=== PATIENT | female | born 1945 | race Caucasian/White ===

== ENCOUNTER 2016-08-14 14:13 | Outpatient (CLI) | payer BC, MEDICARE ==
[2016-08-14 15:09] LABS: Anion Gap 15 mmol/L (10-20); BUN (Urea Nitrogen) 20 mg/dL (9.8-20.1); Calc. Creatinine Clearance 0 mL/min (70-130); Calcium 9.6 mg/dL (7.8-10.44); Carbon Dioxide 23 mmol/L (23-31); Chloride 100 mmol/L (98-107); Estimated GFR-MDRD 40; Glucose 125 mg/dL (80-115); Potassium 3.8 mmol/L (3.5-5.1); Sodium 134 mmol/L (136-145)
[2016-08-14 16:29] LABS: Bilirubin Negative (Negative); Blood, Urine Moderate (Negative); Glucose, Urine (Dipstick) Negative (Negative); Leukocyte Large (Negative); Nitrite Negative (Negative); Protein, Urine (Dipstick) 100 mg/dL (Neg-Trace); Specific Gravity, Urine 1.015 (1.005-1.030); Urobilinogen 0.2 mg/dL (0.2-1.0); pH, Urine 5.5 (5.0-9.0)
[2016-08-14 16:43] LABS: Bacteria/HPF 3+ HPF (None Seen); Clarity Cloudy (Clear); Squamous Epithelial 0-3 HPF (0-3)
[2016-08-14 16:46] LABS: #Basophils 0.1 thou/uL (0.0-0.2); #Eosinphils 0.1 thou/uL (0.0-0.7); #Lymphocytes 1.1 thou/uL (1.20-3.40); #Monocytes 1.2 thou/uL (0.11-0.59); #Neutrophils 15.5 thou/uL (1.40-6.50); %Basophils 0.5 % (0.0-1.0); %Eosinophils 0.3 % (0.0-10.0); %Lymphocytes 6.2 % (21.0-51.0); %Monocytes 6.5 % (0.0-10.0); %Neutrophils 86.5 % (42.0-75.0); Hemoglobin 11.3 g/dL (12.0-16.0); Mean Corpuscular HGB CONC 33.6 g/dL (32.0-36.0); Mean Corpuscular Hemoglobin 31.5 pg (27.0-31.0); Mean Corpuscular Volume 93.7 fl (81.0-99.0); Mean Platelet Volume 7.3 fL (7.4-10.4); Platelet Count 271 thou/uL (130-400); RBC Distribution Width 12.3 % (11.5-14.5); White Blood Cell (WBC) Count 17.9 thou/uL (4.8-10.8)
== END 2016-08-14 14:14 | disposition home or self-care (01) ==
LOC: NAVSJIPCSP 14:13
PROVIDERS: ATTEND Internal Medicine
DX: N30.00 Acute cystitis without hematuria (principal); Z79.899 Other long term (current) drug therapy
CPT/HCPCS: 80048; 81003; 81015; 85025; 87077; 87086; 87186

== ENCOUNTER 2016-08-21 10:23 | Outpatient (CLI) | payer MEDICARE, OTHER | END 2016-08-21 10:24 | LOC: NAVSJIPCSP 10:23 | PROVIDERS: ATTEND Internal Medicine | DX: N30.00 Acute cystitis without hematuria (principal) | CPT/HCPCS: 87086 ==

== ENCOUNTER 2016-11-19 11:10 | Outpatient (CLI) | payer MEDICARE, OTHER ==
[2016-11-19 12:29] LABS: #Basophils 0.1 thou/uL (0.0-0.2); #Eosinphils 0.2 thou/uL (0.0-0.7); #Lymphocytes 1.2 thou/uL (1.20-3.40); #Monocytes 0.3 thou/uL (0.11-0.59); #Neutrophils 4.6 thou/uL (1.40-6.50); %Basophils 1.6 % (0.0-1.0); %Eosinophils 3.2 % (0.0-10.0); %Lymphocytes 18.4 % (21.0-51.0); %Monocytes 3.9 % (0.0-10.0); Mean Corpuscular HGB CONC 32.4 g/dL (32.0-36.0); Mean Corpuscular Hemoglobin 30.9 pg (27.0-31.0); Mean Corpuscular Volume 95.3 fl (81.0-99.0); Mean Platelet Volume 7.9 fL (7.4-10.4); Platelet Count 328 thou/uL (130-400); RBC Distribution Width 14.6 % (11.5-14.5); Red Blood Cell (RBC) Count 3.88 mill/uL (4.20-5.40); White Blood Cell (WBC) Count 6.3 thou/uL (4.8-10.8)
[2016-11-19 13:03] LABS: ALT (SGPT) 52 U/L (8-55); AST (SGOT) 42 U/L (5-34); Albumin 4.2 g/dL (3.4-4.8); Alkaline Phosphatase 69 U/L (40-150); Anion Gap 15 mmol/L (10-20); BUN (Urea Nitrogen) 16 mg/dL (9.8-20.1); Bilirubin, Total 0.6 mg/dL (0.2-1.2); Calc. Creatinine Clearance 0 mL/min (70-130); Calcium 10.2 mg/dL (7.8-10.44); Carbon Dioxide 22 mmol/L (23-31); Cardiac Risk 2.8 (Less than 4.5); Chloride 108 mmol/L (98-107); Cholesterol 171 mg/dl (< 200 Desired); Estimated GFR-MDRD 53; Globulin 2.5 g/dL (2.4-3.5); Glucose 81 mg/dL (80-115); HDL Cholesterol 61 mg/dL (>60 Neg Risk); LDL Cholesterol, Calculated 96 mg/dL; Potassium 4.6 mmol/L (3.5-5.1); Protein, Total 6.7 g/dL (6.0-8.3); Sodium 140 mmol/L (136-145); Triglycerides 68 mg/dL (Less than 150)
[2016-11-19 13:28] LABS: Bilirubin Negative (Negative); Blood, Urine Negative (Negative); Clarity Clear (Clear); Glucose, Urine (Dipstick) Negative (Negative); Leukocyte Small (Negative); Nitrite Negative (Negative); Protein, Urine (Dipstick) Negative (Neg-Trace); Urobilinogen 0.2 mg/dL (0.2-1.0)
[2016-11-19 14:15] LABS: Squamous Epithelial 0-3 HPF (0-3); WBC/HPF 0-3 HPF (0-3)
[2016-11-19 17:44] LABS: Iron 77 ug/dL (50-170); Iron Binding Capacity, Total 275 mcg/dL (265-497)
== END 2016-11-19 11:11 | disposition home or self-care (01) ==
LOC: NAVSJIPCSP 11:10
PROVIDERS: ATTEND Internal Medicine
DX: E03.9 Hypothyroidism, unspecified (principal); M06.9 Rheumatoid arthritis, unspecified; K90.0 Celiac disease
CPT/HCPCS: 36415; 80053; 80061; 81003; 81015; 82306; 83540; 83550; 84443; 85025

== ENCOUNTER 2017-01-13 13:23 | Outpatient (CLI) | payer MEDICARE, OTHER ==
[2017-01-13 16:25] LABS: #Eosinphils 0.2 thou/uL (0.0-0.7); #Lymphocytes 1.2 thou/uL (1.20-3.40); #Monocytes 0.2 thou/uL (0.11-0.59); #Neutrophils 2.7 thou/uL (1.40-6.50); %Basophils 0.9 % (0.0-1.0); %Eosinophils 4.8 % (0.0-10.0); %Lymphocytes 26.9 % (21.0-51.0); %Monocytes 4.5 % (0.0-10.0); Hemoglobin 11.9 g/dL (12.0-16.0); Mean Corpuscular HGB CONC 31.8 g/dL (32.0-36.0); Mean Corpuscular Hemoglobin 30.2 pg (27.0-31.0); Mean Platelet Volume 7.6 fL (7.4-10.4); Platelet Count 252 thou/uL (130-400); RBC Distribution Width 13.9 % (11.5-14.5); Red Blood Cell (RBC) Count 3.94 mill/uL (4.20-5.40); White Blood Cell (WBC) Count 4.3 thou/uL (4.8-10.8)
[2017-01-13 16:42] LABS: ALT (SGPT) 46 U/L (8-55); AST (SGOT) 32 U/L (5-34); Albumin 3.8 g/dL (3.4-4.8); Alkaline Phosphatase 62 U/L (40-150); Anion Gap 15 mmol/L (10-20); BUN (Urea Nitrogen) 15 mg/dL (9.8-20.1); Bilirubin, Total 0.3 mg/dL (0.2-1.2); CRP (Inflammatory) Less than 0.50 mg/dL (= or < 0.5); Calc. Creatinine Clearance 0 mL/min (70-130); Calcium 9.9 mg/dL (7.8-10.44); Carbon Dioxide 21 mmol/L (23-31); Chloride 107 mmol/L (98-107); Estimated GFR-MDRD 53; Globulin 2.3 g/dL (2.4-3.5); Glucose 98 mg/dL (80-115); Potassium 4.4 mmol/L (3.5-5.1); Protein, Total 6.1 g/dL (6.0-8.3); Sodium 139 mmol/L (136-145)
== END 2017-01-13 13:24 | disposition home or self-care (01) ==
LOC: NAVSJIPCSP 13:23
PROVIDERS: ATTEND Internal Medicine Rheumatology
DX: M06.09 Rheumatoid arthritis without rheumatoid factor, multiple sites (principal)
CPT/HCPCS: 36415; 80053; 85025; 85652; 86140

== ENCOUNTER 2017-03-10 08:29 | Outpatient (CLI) | payer MEDICARE, OTHER ==
--- NOTE | 2017-03-10 09:29 | RAD ---
BILATERAL KNEES UPRIGHT AP AND LATERAL VIEWS: History: 71-year-old female with left knee pain. FINDINGS: Right knee: Total knee arthroplasty changes are noted on the right side. IMPRESSION: Status post right knee arthroplasty changes. No dislocation or periprosthetic fracture. Left knee: Left knee arthroplasty changes. No periprosthetic fracture or dislocation or other acute process. POS: [facility]
== END 2017-03-10 08:30 | disposition home or self-care (01) ==
LOC: NAV RAD 08:29
PROVIDERS: ATTEND Internal Medicine Rheumatology
DX: M25.562 Pain in left knee (principal)
CPT/HCPCS: 73565

== ENCOUNTER 2021-05-07 11:52 | Emergency (ER) | payer MEDICARE, OTHER ==
[2021-05-07 12:56] LABS: #Lymphocytes 0.3 thou/uL (1.20-3.40); #Monocytes 0.6 thou/uL (0.11-0.59); #Neutrophils 5.8 thou/uL (1.40-6.50); %Basophils 0.7 % (0.0-1.0); %Lymphocytes 3.9 % (21.0-51.0); %Monocytes 8.7 % (0.0-10.0); %Neutrophils 86.7 % (42.0-75.0); Hemoglobin 13.5 g/dL (12.0-16.0); Mean Corpuscular HGB CONC 33.9 g/dL (32.0-36.0); Mean Corpuscular Hemoglobin 31.3 pg (27.0-31.0); Mean Corpuscular Volume 92.5 fL (78.0-98.0); Platelet Count 269 thou/uL (130-400); RBC Distribution Width 12.4 % (11.5-14.5); White Blood Cell (WBC) Count 6.7 thou/uL (4.8-10.8)
[2021-05-07 13:00] LABS: ALT (SGPT) 15 U/L (8-55); AST (SGOT) 22 U/L (5-34); Albumin 3.8 g/dL (3.4-4.8); Alkaline Phosphatase 47 U/L (40-110); Anion Gap 17 mmol/L (10-20); BUN (Urea Nitrogen) 11 mg/dL (9.8-20.1); Bilirubin, Total 0.6 mg/dL (0.2-1.2); CK (CPK) 384 U/L (29-168); Calc. Creatinine Clearance 0 mL/min (70-130); Calcium 8.8 mg/dL (7.8-10.44); Carbon Dioxide 19 mmol/L (23-31); Chloride 102 mmol/L (98-107); Glucose 123 mg/dL (83-110); Protein, Total 6.8 g/dL (5.8-8.1); Sodium 134 mmol/L (136-145)
[2021-05-07] MEDS ORDERED: Sodium Chloride 0.9% 1,000 ML ONE ×2 (13:20→15:15)
[2021-05-07] MEDS ORDERED: Boostrix 0.5 ML (Tdap) VIAL ONE (13:40)
[2021-05-07 15:28] LABS: Bilirubin Negative (Negative); Blood, Urine Small (Negative); Glucose, Urine (Dipstick) Negative (Negative); Ketone, Urine 15 mg/dL (Negative); Leukocyte Large (Negative); Nitrite Positive (Negative); Protein, Urine (Dipstick) 100 mg/dL (Neg-Trace); Specific Gravity, Urine 1.015 (1.005-1.030); pH, Urine 6.5 (5.0-9.0)
[2021-05-07 15:29] LABS: Clarity SL HAZY (Clear)
[2021-05-07 15:37] LABS: RBC/HPF 0-3 HPF (0-3)
[2021-05-07 15:38] LABS: Bacteria/HPF 4+ HPF (None Seen); Squamous Epithelial 0-3 HPF (0-3); WBC/HPF Greater Than 50 HPF (0-3)
[2021-05-07] MEDS ORDERED: Bacitracin 1 PK ONE (16:12)
== END 2021-05-07 18:04 | disposition short-term general hospital (02) ==
LOC: NAV ERS 11:52
DX: U07.1 COVID-19 (principal); S02.113A Unspecified occipital condyle fracture, initial encounter for closed fracture; S02.2XXA Fracture of nasal bones, initial encounter for closed fracture; M62.82 Rhabdomyolysis; W19.XXXA Unspecified fall, initial encounter; E78.5 Hyperlipidemia, unspecified; I10 Essential (primary) hypertension; M19.90 Unspecified osteoarthritis, unspecified site; Z86.73 Personal history of transient ischemic attack (TIA), and cerebral infarction without residual deficits; Z87.891 Personal history of nicotine dependence; Z79.82 Long term (current) use of aspirin
CPT/HCPCS: 70450; 70486; 72125; 80053; 81003; 81015; 82550; 83880; 84484; 85025; 90471; 90715; 93005; 94760; J7050

== ENCOUNTER 2021-06-19 11:34 | Outpatient (CLI) | payer MEDICARE, OTHER | END 2021-06-19 11:35 | disposition home or self-care (01) | LOC: NAV RAD 11:34 | PROVIDERS: ATTEND Surgery | DX: S02.119 Unspecified fracture of occiput (principal) | CPT/HCPCS: 72040 ==

== ENCOUNTER 2021-06-24 15:03 | Outpatient (CLI) | payer MEDICARE, OTHER | END 2021-06-24 15:04 | disposition home or self-care (01) | LOC: NAV CT 15:03 | PROVIDERS: ATTEND Family Medicine | DX: S02.119 Unspecified fracture of occiput (principal) | CPT/HCPCS: 72125 ==

== ENCOUNTER 2021-07-30 10:51 | Outpatient (CLI) | payer MEDICARE, OTHER | END 2021-07-30 10:52 | disposition home or self-care (01) | LOC: NAV CT 10:51 | PROVIDERS: ATTEND Surgery | DX: S02.113D Unspecified occipital condyle fracture, subsequent encounter for fracture with routine healing (principal); M47.812 Spondylosis without myelopathy or radiculopathy, cervical region | CPT/HCPCS: 72125 ==

== ENCOUNTER 2022-04-01 12:23 | Emergency (ER) | payer MEDICARE, OTHER ==
[2022-04-01 13:01] LABS: Base Excess-Venous -1.3 mmol/L (-2.0 to 3.0); Bicarbonate (HCO3v) 21.9 mmol/L (22.0-28.0); CO2 Tension (PvCO2) 32.4 mmHg (42.0-51.0); Calcium, Ionized 0.99 mmol/L (1.15-1.33); Chloride 101 mmol/L (98-107); Hemoglobin - Calc 17.1 g/dL (12.0-16.0); Potassium 3.3 mmol/L (3.5-5.1); Sodium 140 mmol/L (138-145); T. Carbon Dioxide 22.9 mmol/L (22.0-28.0); vO2 Saturation-calc 86.3 % (60.0-85.0)
[2022-04-01 13:04] LABS: #Basophils 0.1 thou/uL (0.0-0.2); #Lymphocytes 0.5 thou/uL (1.20-3.40); #Monocytes 0.7 thou/uL (0.11-0.59); #Neutrophils 6.2 thou/uL (1.40-6.50); %Basophils 1.3 % (0.0-1.0); %Eosinophils 0.2 % (0.0-10.0); %Lymphocytes 6.1 % (21.0-51.0); %Neutrophils 83.5 % (42.0-75.0); Hemoglobin 16.7 g/dL (12.0-16.0); Mean Corpuscular HGB CONC 31.9 g/dL (32.0-36.0); Mean Corpuscular Hemoglobin 30.1 pg (27.0-31.0); Mean Corpuscular Volume 94.5 fl (78.0-98.0); Mean Platelet Volume 7.1 fL (7.4-10.4); Platelet Count 513 10x3/uL (130-400); RBC Distribution Width 14.5 % (11.5-14.5); Red Blood Cell (RBC) Count 5.55 mill/uL (4.20-5.40); White Blood Cell (WBC) Count 7.5 10x3/uL (4.8-10.8)
[2022-04-01] MEDS ORDERED: Sodium Chloride 0.9% 1,000 ML ONE (13:07)
[2022-04-01 13:08] LABS: ALT (SGPT) 22 U/L (8-55); AST (SGOT) 20 U/L (5-34); Albumin 4.8 g/dL (3.4-4.8); Alkaline Phosphatase 68 U/L (40-110); Anion Gap 25 mmol/L (10-20); BUN (Urea Nitrogen) 32 mg/dL (9.8-20.1); Calc. Creatinine Clearance 0 mL/min (70-130); Calcium 10.1 mg/dL (7.8-10.44); Carbon Dioxide 22 mmol/L (23-31); Chloride 97 mmol/L (98-107); Estimated GFR 21; Glucose 219 mg/dL (83-110); Potassium 3.5 mmol/L (3.5-5.1); Protein, Total 7.8 g/dL (5.8-8.1); Sodium 140 mmol/L (136-145)
[2022-04-01 13:20] LABS: Bilirubin Small (Negative); Blood, Urine Trace (Negative); Clarity Slightly Cloudy (Clear); Glucose, Urine (Dipstick) Negative (Negative); Ketone, Urine Trace mg/dL (Negative); Leukocyte Trace (Negative); Nitrite Negative (Negative); Protein, Urine (Dipstick) > or equal to 300 mg/dL (Neg-Trace); Urobilinogen 0.2 mg/dL (Less than 2); pH, Urine 5.5 (5.0-9.0)
[2022-04-01 13:34] LABS: Specific Gravity, Urine 1.025 (1.002-1.036)
[2022-04-01 13:36] LABS: Bacteria/HPF 3+ HPF (None Seen); RBC/HPF 0-3 HPF (0-3); Squamous Epithelial 0-3 HPF (0-3); WBC/HPF 0-3 HPF (0-3)
[2022-04-01] MEDS ORDERED: Aspirin Chewable 81 MG TAB ONE (13:36)
[2022-04-01 13:54] LABS: CKMB 3.7 ng/mL (0-6.6)
[2022-04-01] MEDS ORDERED: cefTRIAXone\\ROCEPHIN 2 GM VIAL ONE (13:58)
[2022-04-01] MEDS ORDERED: Sodium Chloride 0.9% 500 ML ONE (13:58)
[2022-04-01] MEDS ORDERED: Sodium Chloride 0.9% 100 ML ONE (13:58)
[2022-04-01 14:06] LABS: SARS-CoV-2 NAA Rapid Test Not Detected (NotDetected)
[2022-04-01] MEDS ORDERED: Ondansetron PF 4 MG/2 ML Vial ONE (15:45)
[2022-04-01 16:08] LABS: Lactic Acid 2.8 mmol/L (0.5-2.2)
[2022-04-01 16:33] LABS: Troponin I 0.447 ng/mL (< 0.028)
== END 2022-04-01 16:30 | disposition short-term general hospital (02) ==
LOC: NAV ERS 12:23
DX: K56.609 Unspecified intestinal obstruction, unspecified as to partial versus complete obstruction (principal); A41.9 Sepsis, unspecified organism; I21.4 Non-ST elevation (NSTEMI) myocardial infarction; E03.9 Hypothyroidism, unspecified; I10 Essential (primary) hypertension; E78.5 Hyperlipidemia, unspecified; Z79.82 Long term (current) use of aspirin; Z79.899 Other long term (current) drug therapy; Z87.891 Personal history of nicotine dependence; Z20.822 Contact with and (suspected) exposure to COVID-19
CPT/HCPCS: 36415; 71045; 74176; 80053; 81003; 81015; 82330; 82435; 82553; 82803; 83605; 84132; 84295; 84484; 85025; 87040; 87077; 87086; 87186; 93005; 96361; 96365; 96366; 96367; 96375; J0696; J2405; J3370; J3490; J7030; J7050

== ENCOUNTER 2022-04-05 13:46 | Inpatient (IN) | payer MEDICARE, OTHER ==
[2022-04-05] MEDS ORDERED: Calcium Carbonate 500 MG ChewTAB PO PRN (16:59)
[2022-04-05] MEDS ORDERED: Acetaminophen 325 MG TAB PO PRN (16:59)
[2022-04-05] MEDS ORDERED: Bisacodyl 5 MG TAB PO PRN (17:09)
[2022-04-05] MEDS ORDERED: Bisacodyl 10 MG SUPP PR PRN (17:09)
[2022-04-05] MEDS ORDERED: Senokot S 8.6-50 MG TAB PO PRN (17:09)
[2022-04-05] MEDS ORDERED: Ondansetron ODT 4 MG TAB PO PRN (18:04)
[2022-04-05] MEDS ORDERED: Ondansetron PF 4 MG/2 ML Vial IVP PRN (18:04)
[2022-04-05] MEDS: Rivaroxaban 10 MG TAB PO SCH (18:10)
[2022-04-05] MEDS: Melatonin 3 MG TAB PO SCH (21:15)
[2022-04-06] MEDS: Levothyroxine Sodium 88 MCG TAB PO SCH (05:23)
[2022-04-06 05:33] LABS: #Basophils 0.1 thou/uL (0.0-0.2); #Eosinphils 0.2 thou/uL (0.0-0.7); #Monocytes 1.1 thou/uL (0.11-0.59); #Neutrophils 5.3 thou/uL (1.40-6.50); %Basophils 0.8 % (0.0-1.0); %Eosinophils 2.5 % (0.0-10.0); %Monocytes 14.3 % (0.0-10.0); %Neutrophils 69.4 % (42.0-75.0); Hemoglobin 10.7 g/dL (12.0-16.0); Mean Corpuscular HGB CONC 32.1 g/dL (32.0-36.0); Mean Corpuscular Hemoglobin 30.4 pg (27.0-31.0); Mean Corpuscular Volume 94.7 fl (78.0-98.0); Mean Platelet Volume 6.3 fL (7.4-10.4); Platelet Count 271 10x3/uL (130-400); RBC Distribution Width 14.7 % (11.5-14.5); Red Blood Cell (RBC) Count 3.52 mill/uL (4.20-5.40); White Blood Cell (WBC) Count 7.6 10x3/uL (4.8-10.8)
[2022-04-06 05:47] LABS: Anion Gap 12 mmol/L (10-20); BUN (Urea Nitrogen) 12 mg/dL (9.8-20.1); Calc. Creatinine Clearance 86 mL/min (70-130); Carbon Dioxide 19 mmol/L (23-31); Chloride 113 mmol/L (98-107); Estimated GFR 81; Glucose 76 mg/dL (83-110); Potassium 3.6 mmol/L (3.5-5.1); Sodium 140 mmol/L (136-145)
[2022-04-06 05:51] LABS: Calcium 6.9 mg/dL (7.8-10.44)
[2022-04-06] MEDS: Ascorbic Acid 500 mg Chewable Tablet PO SCH (08:17)
[2022-04-06] MEDS: Fish Oil 1,000 MG CAP PO SCH (08:17)
[2022-04-06] MEDS: Folic Acid 1 MG TAB PO SCH (08:17)
[2022-04-06] MEDS: Aspirin 81 mg Enteric Coated Tablet PO SCH (08:18)
[2022-04-06] MEDS: Calcium Carbonate 600 MG + Vit D TAB PO SCH ×2 (12:39→17:36)
[2022-04-06 16:35] LABS: ALT (SGPT) 18 U/L (8-55); AST (SGOT) 21 U/L (5-34); Albumin 3.1 g/dL (3.4-4.8); Alkaline Phosphatase 49 U/L (40-110); Anion Gap 15 mmol/L (10-20); BUN (Urea Nitrogen) 11 mg/dL (9.8-20.1); Bilirubin, Total 0.4 mg/dL (0.2-1.2); Calc. Creatinine Clearance 89 mL/min (70-130); Calcium 7.1 mg/dL (7.8-10.44); Carbon Dioxide 18 mmol/L (23-31); Chloride 110 mmol/L (98-107); Estimated GFR 83; Globulin 2.2 g/dL (2.4-3.5); Glucose 84 mg/dL (83-110); Magnesium 1.8 mg/dL (1.6-2.6); Potassium 4.1 mmol/L (3.5-5.1); Protein, Total 5.3 g/dL (5.8-8.1); Sodium 139 mmol/L (136-145)
[2022-04-06 16:40] LABS: Phosphorus 1.2 mg/dL (2.3-4.7)
[2022-04-06] MEDS ORDERED: Potassium Phosphate 9 MMOL in Sodium Chloride 0.9% 100 ML IVPB SCH (17:15)
[2022-04-06] MEDS: Rivaroxaban 10 MG TAB PO SCH (17:36)
[2022-04-06] MEDS: PHOS-NAK 1 PKT PACK PO SCH (20:14)
[2022-04-06] MEDS: Melatonin 3 MG TAB PO SCH (20:55)
[2022-04-06] MEDS: Atorvastatin Calcium 10 MG TAB PO SCH (20:55)
[2022-04-07] MEDS: PHOS-NAK 1 PKT PACK PO SCH ×2 (00:06→04:24)
[2022-04-07] MEDS: Levothyroxine Sodium 88 MCG TAB PO SCH (06:22)
[2022-04-07] MEDS: Fish Oil 1,000 MG CAP PO SCH (08:46)
[2022-04-07] MEDS: Aspirin 81 mg Enteric Coated Tablet PO SCH (08:46)
[2022-04-07] MEDS: Folic Acid 1 MG TAB PO SCH (08:46)
[2022-04-07] MEDS: Ascorbic Acid 500 mg Chewable Tablet PO SCH (08:46)
[2022-04-07] MEDS: Calcium Carbonate 600 MG + Vit D TAB PO SCH ×3 (08:46→17:41)
[2022-04-07 09:07] LABS: Anion Gap 13 mmol/L (10-20); BUN (Urea Nitrogen) 7 mg/dL (9.8-20.1); Calc. Creatinine Clearance 88 mL/min (70-130); Calcium 7.8 mg/dL (7.8-10.44); Carbon Dioxide 20 mmol/L (23-31); Chloride 109 mmol/L (98-107); Estimated GFR 82; Glucose 126 mg/dL (83-110); Potassium 3.7 mmol/L (3.5-5.1); Sodium 138 mmol/L (136-145)
[2022-04-07 09:11] LABS: #Basophils 0.1 thou/uL (0.0-0.2); #Eosinphils 0.2 thou/uL (0.0-0.7); #Lymphocytes 1.1 thou/uL (1.20-3.40); #Monocytes 1.1 thou/uL (0.11-0.59); #Neutrophils 5.7 thou/uL (1.40-6.50); %Basophils 1.4 % (0.0-1.0); %Eosinophils 1.8 % (0.0-10.0); %Lymphocytes 13.8 % (21.0-51.0); %Monocytes 13.6 % (0.0-10.0); %Neutrophils 69.4 % (42.0-75.0); Hemoglobin 12.2 g/dL (12.0-16.0); Mean Corpuscular HGB CONC 32.5 g/dL (32.0-36.0); Mean Corpuscular Hemoglobin 30.4 pg (27.0-31.0); Mean Corpuscular Volume 93.7 fl (78.0-98.0); Mean Platelet Volume 6.9 fL (7.4-10.4); Platelet Count 340 10x3/uL (130-400); Red Blood Cell (RBC) Count 4.01 mill/uL (4.20-5.40); White Blood Cell (WBC) Count 8.2 10x3/uL (4.8-10.8)
[2022-04-07 09:22] LABS: Phosphorus 1.7 mg/dL (2.3-4.7)
[2022-04-07] MEDS: Rivaroxaban 10 MG TAB PO SCH (17:41)
[2022-04-07] MEDS: Atorvastatin Calcium 10 MG TAB PO SCH (20:30)
[2022-04-07] MEDS: Melatonin 3 MG TAB PO SCH (20:30)
[2022-04-08] MEDS: Levothyroxine Sodium 88 MCG TAB PO SCH (06:09)
[2022-04-08] MEDS: Fish Oil 1,000 MG CAP PO SCH (08:45)
[2022-04-08] MEDS: Ascorbic Acid 500 mg Chewable Tablet PO SCH (08:46)
[2022-04-08] MEDS: Calcium Carbonate 600 MG + Vit D TAB PO SCH ×3 (08:46→17:07)
[2022-04-08] MEDS: Aspirin 81 mg Enteric Coated Tablet PO SCH (08:47)
[2022-04-08] MEDS: Folic Acid 1 MG TAB PO SCH (08:47)
[2022-04-08 09:16] LABS: ALT (SGPT) 14 U/L (8-55); AST (SGOT) 15 U/L (5-34); Alkaline Phosphatase 47 U/L (40-110); Anion Gap 12 mmol/L (10-20); BUN (Urea Nitrogen) 6 mg/dL (9.8-20.1); Bilirubin, Total 0.5 mg/dL (0.2-1.2); Calc. Creatinine Clearance 88 mL/min (70-130); Calcium 8.9 mg/dL (7.8-10.44); Carbon Dioxide 21 mmol/L (23-31); Chloride 108 mmol/L (98-107); Estimated GFR 82; Globulin 2.6 g/dL (2.4-3.5); Glucose 108 mg/dL (83-110); Potassium 3.8 mmol/L (3.5-5.1); Protein, Total 5.6 g/dL (5.8-8.1); Sodium 137 mmol/L (136-145)
[2022-04-08] MEDS: Rivaroxaban 10 MG TAB PO SCH (17:07)
[2022-04-08] MEDS: Atorvastatin Calcium 10 MG TAB PO SCH (21:05)
[2022-04-08] MEDS: Melatonin 3 MG TAB PO SCH (21:05)
[2022-04-09] MEDS: Levothyroxine Sodium 88 MCG TAB PO SCH (05:50)
[2022-04-09 06:14] LABS: ALT (SGPT) 14 U/L (8-55); AST (SGOT) 13 U/L (5-34); Albumin 2.7 g/dL (3.4-4.8); Alkaline Phosphatase 46 U/L (40-110); Anion Gap 10 mmol/L (10-20); BUN (Urea Nitrogen) 6 mg/dL (9.8-20.1); Bilirubin, Total 0.4 mg/dL (0.2-1.2); Calc. Creatinine Clearance 85 mL/min (70-130); Calcium 9.1 mg/dL (7.8-10.44); Carbon Dioxide 23 mmol/L (23-31); Chloride 107 mmol/L (98-107); Estimated GFR 80; Globulin 2.4 g/dL (2.4-3.5); Glucose 94 mg/dL (83-110); Potassium 3.7 mmol/L (3.5-5.1); Protein, Total 5.1 g/dL (5.8-8.1); Sodium 136 mmol/L (136-145)
[2022-04-09] MEDS: Fish Oil 1,000 MG CAP PO SCH (09:41)
[2022-04-09] MEDS: Folic Acid 1 MG TAB PO SCH (09:41)
[2022-04-09] MEDS: Aspirin 81 mg Enteric Coated Tablet PO SCH (09:41)
[2022-04-09] MEDS: Ascorbic Acid 500 mg Chewable Tablet PO SCH (09:42)
[2022-04-09] MEDS: Calcium Carbonate 600 MG + Vit D TAB PO SCH ×3 (09:42→18:09)
[2022-04-09] MEDS: Rivaroxaban 10 MG TAB PO SCH (18:09)
[2022-04-09] MEDS: Atorvastatin Calcium 10 MG TAB PO SCH (20:08)
[2022-04-09] MEDS: Melatonin 3 MG TAB PO SCH (20:08)
[2022-04-10] MEDS: Levothyroxine Sodium 88 MCG TAB PO SCH (05:52)
[2022-04-10 06:24] LABS: ALT (SGPT) 12 U/L (8-55); AST (SGOT) 12 U/L (5-34); Albumin 2.7 g/dL (3.4-4.8); Alkaline Phosphatase 46 U/L (40-110); Anion Gap 13 mmol/L (10-20); BUN (Urea Nitrogen) 6 mg/dL (9.8-20.1); Bilirubin, Total 0.4 mg/dL (0.2-1.2); Calc. Creatinine Clearance 79 mL/min (70-130); Calcium 9.6 mg/dL (7.8-10.44); Carbon Dioxide 25 mmol/L (23-31); Chloride 105 mmol/L (98-107); Estimated GFR 73; Globulin 2.4 g/dL (2.4-3.5); Glucose 99 mg/dL (83-110); Potassium 3.7 mmol/L (3.5-5.1); Protein, Total 5.1 g/dL (5.8-8.1); Sodium 139 mmol/L (136-145)
[2022-04-10] MEDS: Calcium Carbonate 600 MG + Vit D TAB PO SCH ×3 (08:39→16:31)
[2022-04-10] MEDS: Fish Oil 1,000 MG CAP PO SCH (08:39)
[2022-04-10] MEDS: Aspirin 81 mg Enteric Coated Tablet PO SCH (08:39)
[2022-04-10] MEDS: Ascorbic Acid 500 mg Chewable Tablet PO SCH (08:39)
[2022-04-10] MEDS: Folic Acid 1 MG TAB PO SCH (08:39)
[2022-04-10] MEDS: Rivaroxaban 10 MG TAB PO SCH (16:33)
[2022-04-10] MEDS: Atorvastatin Calcium 10 MG TAB PO SCH (20:34)
[2022-04-10] MEDS: Melatonin 3 MG TAB PO SCH (20:34)
[2022-04-11 05:48] LABS: ALT (SGPT) 13 U/L (8-55); AST (SGOT) 14 U/L (5-34); Albumin 2.7 g/dL (3.4-4.8); Alkaline Phosphatase 43 U/L (40-110); Anion Gap 14 mmol/L (10-20); BUN (Urea Nitrogen) 6 mg/dL (9.8-20.1); Bilirubin, Total 0.4 mg/dL (0.2-1.2); Calc. Creatinine Clearance 75 mL/min (70-130); Calcium 9.5 mg/dL (7.8-10.44); Carbon Dioxide 25 mmol/L (23-31); Chloride 105 mmol/L (98-107); Estimated GFR 71; Globulin 2.4 g/dL (2.4-3.5); Glucose 97 mg/dL (83-110); Potassium 3.7 mmol/L (3.5-5.1); Protein, Total 5.1 g/dL (5.8-8.1); Sodium 140 mmol/L (136-145)
[2022-04-11] MEDS: Levothyroxine Sodium 88 MCG TAB PO SCH (06:13)
[2022-04-11] MEDS: Calcium Carbonate 600 MG + Vit D TAB PO SCH ×3 (08:32→17:47)
[2022-04-11] MEDS: Fish Oil 1,000 MG CAP PO SCH (08:32)
[2022-04-11] MEDS: Aspirin 81 mg Enteric Coated Tablet PO SCH (08:32)
[2022-04-11] MEDS: Folic Acid 1 MG TAB PO SCH (08:32)
[2022-04-11] MEDS: Ascorbic Acid 500 mg Chewable Tablet PO SCH (08:32)
[2022-04-11] MEDS: Rivaroxaban 10 MG TAB PO SCH (17:47)
[2022-04-11] MEDS: Melatonin 3 MG TAB PO SCH (19:58)
[2022-04-11] MEDS: Atorvastatin Calcium 10 MG TAB PO SCH (19:58)
[2022-04-12 05:53] LABS: Carbon Dioxide 26 mmol/L (23-31); Glucose 93 mg/dL (83-110); Sodium 139 mmol/L (136-145)
[2022-04-12 05:56] LABS: ALT (SGPT) 12 U/L (8-55); AST (SGOT) 12 U/L (5-34); Albumin 2.8 g/dL (3.4-4.8); Alkaline Phosphatase 47 U/L (40-110); Anion Gap 13 mmol/L (10-20); BUN (Urea Nitrogen) 6 mg/dL (9.8-20.1); Bilirubin, Total 0.4 mg/dL (0.2-1.2); Calc. Creatinine Clearance 65 mL/min (70-130); Calcium 10.2 mg/dL (7.8-10.44); Chloride 104 mmol/L (98-107); Estimated GFR 59; Globulin 2.6 g/dL (2.4-3.5); Potassium 3.9 mmol/L (3.5-5.1); Protein, Total 5.4 g/dL (5.8-8.1)
[2022-04-12] MEDS: Levothyroxine Sodium 88 MCG TAB PO SCH (07:12)
[2022-04-12] MEDS ORDERED: ANORO ELLIPTA INHALATION INH SCH (09:00)
[2022-04-12] MEDS: Fish Oil 1,000 MG CAP PO SCH (09:45)
[2022-04-12] MEDS: Ascorbic Acid 500 mg Chewable Tablet PO SCH (09:46)
[2022-04-12] MEDS: Aspirin 81 mg Enteric Coated Tablet PO SCH (09:46)
[2022-04-12] MEDS: Methotrexate Sodium 2.5 MG TAB PO SCH (09:46)
[2022-04-12] MEDS: Folic Acid 1 MG TAB PO SCH (09:46)
[2022-04-12] MEDS: Calcium Carbonate 600 MG + Vit D TAB PO SCH ×3 (09:46→17:14)
[2022-04-12] MEDS: Rivaroxaban 10 MG TAB PO SCH (17:14)
[2022-04-12] MEDS: Atorvastatin Calcium 10 MG TAB PO SCH (20:55)
[2022-04-12] MEDS: Melatonin 3 MG TAB PO SCH (20:55)
[2022-04-13 05:41] LABS: Glucose 95 mg/dL (83-110); Sodium 138 mmol/L (136-145)
[2022-04-13 05:42] LABS: ALT (SGPT) 12 U/L (8-55); AST (SGOT) 14 U/L (5-34); Albumin 2.9 g/dL (3.4-4.8); Alkaline Phosphatase 48 U/L (40-110); Anion Gap 12 mmol/L (10-20); BUN (Urea Nitrogen) 7 mg/dL (9.8-20.1); Bilirubin, Total 0.5 mg/dL (0.2-1.2); Calc. Creatinine Clearance 61 mL/min (70-130); Calcium 10.3 mg/dL (7.8-10.44); Carbon Dioxide 26 mmol/L (23-31); Chloride 104 mmol/L (98-107); Estimated GFR 56; Globulin 2.5 g/dL (2.4-3.5); Potassium 3.6 mmol/L (3.5-5.1); Protein, Total 5.4 g/dL (5.8-8.1)
[2022-04-13] MEDS: Levothyroxine Sodium 88 MCG TAB PO SCH (06:06)
[2022-04-13] MEDS: Calcium Carbonate 600 MG + Vit D TAB PO SCH ×3 (08:25→16:36)
[2022-04-13] MEDS: Folic Acid 1 MG TAB PO SCH (08:25)
[2022-04-13] MEDS: Aspirin 81 mg Enteric Coated Tablet PO SCH (08:25)
[2022-04-13] MEDS: Ascorbic Acid 500 mg Chewable Tablet PO SCH (08:25)
[2022-04-13] MEDS: Fish Oil 1,000 MG CAP PO SCH (08:25)
[2022-04-13] MEDS: Rivaroxaban 10 MG TAB PO SCH (16:36)
[2022-04-13] MEDS: Melatonin 3 MG TAB PO SCH (21:57)
[2022-04-13] MEDS: Atorvastatin Calcium 10 MG TAB PO SCH (21:57)
[2022-04-14] MEDS: Levothyroxine Sodium 88 MCG TAB PO SCH (05:43)
[2022-04-14] MEDS: Calcium Carbonate 600 MG + Vit D TAB PO SCH ×3 (09:35→16:40)
[2022-04-14] MEDS: Aspirin 81 mg Enteric Coated Tablet PO SCH (09:35)
[2022-04-14] MEDS: Ascorbic Acid 500 mg Chewable Tablet PO SCH (09:35)
[2022-04-14] MEDS: Folic Acid 1 MG TAB PO SCH (09:36)
[2022-04-14] MEDS: Fish Oil 1,000 MG CAP PO SCH (09:36)
[2022-04-14] MEDS: Rivaroxaban 10 MG TAB PO SCH (16:40)
[2022-04-14] MEDS: Atorvastatin Calcium 10 MG TAB PO SCH (20:58)
[2022-04-14] MEDS: Melatonin 3 MG TAB PO SCH (20:58)
[2022-04-15] MEDS: Levothyroxine Sodium 88 MCG TAB PO SCH (05:59)
[2022-04-15] MEDS: Fish Oil 1,000 MG CAP PO SCH (08:22)
[2022-04-15] MEDS: Folic Acid 1 MG TAB PO SCH (08:22)
[2022-04-15] MEDS: Aspirin 81 mg Enteric Coated Tablet PO SCH (08:22)
[2022-04-15] MEDS: Ascorbic Acid 500 mg Chewable Tablet PO SCH (08:22)
[2022-04-15] MEDS: Calcium Carbonate 600 MG + Vit D TAB PO SCH ×3 (08:22→16:58)
[2022-04-15] MEDS: Rivaroxaban 10 MG TAB PO SCH (16:58)
[2022-04-15] MEDS: Atorvastatin Calcium 10 MG TAB PO SCH (20:53)
[2022-04-15] MEDS: Melatonin 3 MG TAB PO SCH (20:53)
[2022-04-16] MEDS: Levothyroxine Sodium 88 MCG TAB PO SCH (05:45)
[2022-04-16] MEDS: Aspirin 81 mg Enteric Coated Tablet PO SCH (08:28)
[2022-04-16] MEDS: Fish Oil 1,000 MG CAP PO SCH (08:28)
[2022-04-16] MEDS: Folic Acid 1 MG TAB PO SCH (08:28)
[2022-04-16] MEDS: Ascorbic Acid 500 mg Chewable Tablet PO SCH (08:28)
[2022-04-16] MEDS: Floranex 1 GM Packet PO SCH (08:28)
[2022-04-16] MEDS: Rivaroxaban 10 MG TAB PO SCH (17:42)
[2022-04-16] MEDS: Melatonin 3 MG TAB PO SCH (20:43)
[2022-04-16] MEDS: Atorvastatin Calcium 10 MG TAB PO SCH (20:43)
[2022-04-17] MEDS: Levothyroxine Sodium 88 MCG TAB PO SCH (05:36)
[2022-04-17 06:06] LABS: Hemoglobin 11.5 g/dL (12.0-16.0)
[2022-04-17] MEDS: Floranex 1 GM Packet PO SCH (08:50)
[2022-04-17] MEDS: Folic Acid 1 MG TAB PO SCH (08:50)
[2022-04-17] MEDS: Ascorbic Acid 500 mg Chewable Tablet PO SCH (08:50)
[2022-04-17] MEDS: Aspirin 81 mg Enteric Coated Tablet PO SCH (08:50)
[2022-04-17] MEDS: Fish Oil 1,000 MG CAP PO SCH (08:50)
[2022-04-17] MEDS: Rivaroxaban 10 MG TAB PO SCH (17:37)
[2022-04-17] MEDS: Melatonin 3 MG TAB PO SCH (20:36)
[2022-04-17] MEDS: Atorvastatin Calcium 10 MG TAB PO SCH (20:36)
[2022-04-18] MEDS: Levothyroxine Sodium 88 MCG TAB PO SCH (05:55)
[2022-04-18] MEDS: Fish Oil 1,000 MG CAP PO SCH (08:55)
[2022-04-18] MEDS: Ascorbic Acid 500 mg Chewable Tablet PO SCH (08:55)
[2022-04-18] MEDS: Folic Acid 1 MG TAB PO SCH (08:55)
[2022-04-18] MEDS: Floranex 1 GM Packet PO SCH (08:55)
[2022-04-18] MEDS: Aspirin 81 mg Enteric Coated Tablet PO SCH (08:55)
[2022-04-18] MEDS: Rivaroxaban 10 MG TAB PO SCH (17:40)
[2022-04-18] MEDS: Atorvastatin Calcium 10 MG TAB PO SCH (21:03)
[2022-04-18] MEDS: Melatonin 3 MG TAB PO SCH (21:03)
[2022-04-19] MEDS: Levothyroxine Sodium 88 MCG TAB PO SCH (06:20)
[2022-04-19] MEDS: Floranex 1 GM Packet PO SCH (08:46)
[2022-04-19] MEDS: Fish Oil 1,000 MG CAP PO SCH (08:47)
[2022-04-19] MEDS: Folic Acid 1 MG TAB PO SCH (08:48)
[2022-04-19] MEDS: Aspirin 81 mg Enteric Coated Tablet PO SCH (08:48)
[2022-04-19] MEDS: Methotrexate Sodium 2.5 MG TAB PO SCH (08:48)
[2022-04-19] MEDS: Ascorbic Acid 500 mg Chewable Tablet PO SCH (08:48)
[2022-04-19] MEDS: Rivaroxaban 10 MG TAB PO SCH (16:53)
[2022-04-19] MEDS: Atorvastatin Calcium 10 MG TAB PO SCH (20:32)
[2022-04-19] MEDS: Melatonin 3 MG TAB PO SCH (20:32)
[2022-04-20] MEDS: Levothyroxine Sodium 88 MCG TAB PO SCH (06:13)
[2022-04-20] MEDS: Fish Oil 1,000 MG CAP PO SCH (08:27)
[2022-04-20] MEDS: LACTINEX 1 TAB PO SCH (08:27)
[2022-04-20] MEDS: Folic Acid 1 MG TAB PO SCH (08:28)
[2022-04-20] MEDS: Ascorbic Acid 500 mg Chewable Tablet PO SCH (08:28)
[2022-04-20] MEDS: Aspirin 81 mg Enteric Coated Tablet PO SCH (08:28)
[2022-04-20] MEDS: Rivaroxaban 10 MG TAB PO SCH (16:48)
[2022-04-20] MEDS: Melatonin 3 MG TAB PO SCH (20:20)
[2022-04-20] MEDS: Atorvastatin Calcium 10 MG TAB PO SCH (20:20)
[2022-04-21] MEDS: Levothyroxine Sodium 88 MCG TAB PO SCH (05:40)
[2022-04-21 06:21] LABS: #Basophils 0.1 thou/uL (0.0-0.2); #Eosinphils 0.4 thou/uL (0.0-0.7); #Lymphocytes 1.3 thou/uL (1.20-3.40); #Monocytes 0.5 thou/uL (0.11-0.59); #Neutrophils 3.5 thou/uL (1.40-6.50); %Basophils 2.1 % (0.0-1.0); %Eosinophils 6.8 % (0.0-10.0); %Monocytes 8.5 % (0.0-10.0); %Neutrophils 60.6 % (42.0-75.0); Hemoglobin 11.5 g/dL (12.0-16.0); Mean Corpuscular HGB CONC 32.1 g/dL (32.0-36.0); Mean Corpuscular Hemoglobin 30.2 pg (27.0-31.0); Mean Corpuscular Volume 94.2 fl (78.0-98.0); Mean Platelet Volume 6.6 fL (7.4-10.4); Platelet Count 429 10x3/uL (130-400); RBC Distribution Width 15.6 % (11.5-14.5); Red Blood Cell (RBC) Count 3.82 mill/uL (4.20-5.40); White Blood Cell (WBC) Count 5.7 10x3/uL (4.8-10.8)
[2022-04-21 06:39] LABS: Anion Gap 13 mmol/L (10-20); BUN (Urea Nitrogen) 8 mg/dL (9.8-20.1); Calc. Creatinine Clearance 58 mL/min (70-130); Calcium 8.8 mg/dL (7.8-10.44); Carbon Dioxide 24 mmol/L (23-31); Chloride 106 mmol/L (98-107); Estimated GFR 56; Glucose 96 mg/dL (83-110); Potassium 3.1 mmol/L (3.5-5.1); Sodium 140 mmol/L (136-145)
[2022-04-21] MEDS ORDERED: Saccharomyces boulardii 250 MG CAP PO SCH (09:30)
[2022-04-21] MEDS: Folic Acid 1 MG TAB PO SCH (09:51)
[2022-04-21] MEDS: Fish Oil 1,000 MG CAP PO SCH (09:52)
[2022-04-21] MEDS: Aspirin 81 mg Enteric Coated Tablet PO SCH (09:52)
[2022-04-21] MEDS: Ascorbic Acid 500 mg Chewable Tablet PO SCH (09:52)
[2022-04-21] MEDS: Potassium Chloride 20 MEQ TAB PO SCH (18:19)
[2022-04-21] MEDS: Rivaroxaban 10 MG TAB PO SCH (18:19)
[2022-04-21] MEDS: Melatonin 3 MG TAB PO SCH (20:26)
[2022-04-21] MEDS: Atorvastatin Calcium 10 MG TAB PO SCH (20:26)
[2022-04-21 20:46] VITALS: BMI 28.8
[2022-04-21] MEDS: LACTINEX 1 TAB PO SCH (21:40)
[2022-04-22] MEDS: Levothyroxine Sodium 88 MCG TAB PO SCH (05:56)
[2022-04-22 06:07] LABS: Anion Gap 11 mmol/L (10-20); BUN (Urea Nitrogen) 7 mg/dL (9.8-20.1); Calc. Creatinine Clearance 67 mL/min (70-130); Calcium 8.4 mg/dL (7.8-10.44); Carbon Dioxide 22 mmol/L (23-31); Chloride 109 mmol/L (98-107); Estimated GFR 66; Glucose 89 mg/dL (83-110); Magnesium 1.6 mg/dL (1.6-2.6); Potassium 3.3 mmol/L (3.5-5.1); Sodium 139 mmol/L (136-145)
[2022-04-22] MEDS: Saccharomyces boulardii 250 MG CAP PO SCH (07:43)
[2022-04-22] MEDS: Potassium Chloride 20 MEQ TAB PO SCH ×2 (07:43→17:30)
[2022-04-22] MEDS: Fish Oil 1,000 MG CAP PO SCH (07:43)
[2022-04-22] MEDS: Folic Acid 1 MG TAB PO SCH (07:43)
[2022-04-22] MEDS: Aspirin 81 mg Enteric Coated Tablet PO SCH (07:43)
[2022-04-22] MEDS: Ascorbic Acid 500 mg Chewable Tablet PO SCH (07:43)
[2022-04-22] MEDS: Rivaroxaban 10 MG TAB PO SCH (17:30)
[2022-04-22] MEDS: Melatonin 3 MG TAB PO SCH (21:02)
[2022-04-22] MEDS: Atorvastatin Calcium 10 MG TAB PO SCH (21:02)
[2022-04-23] MEDS: Levothyroxine Sodium 88 MCG TAB PO SCH (06:02)
[2022-04-23 06:21] LABS: #Basophils 0.1 thou/uL (0.0-0.2); #Eosinphils 0.5 thou/uL (0.0-0.7); #Lymphocytes 1.5 thou/uL (1.20-3.40); #Monocytes 0.6 thou/uL (0.11-0.59); #Neutrophils 3.9 thou/uL (1.40-6.50); %Basophils 1.7 % (0.0-1.0); %Eosinophils 7.1 % (0.0-10.0); %Lymphocytes 23.2 % (21.0-51.0); %Monocytes 8.9 % (0.0-10.0); %Neutrophils 59.1 % (42.0-75.0); Hemoglobin 11.3 g/dL (12.0-16.0); Mean Corpuscular HGB CONC 32.7 g/dL (32.0-36.0); Mean Corpuscular Hemoglobin 30.5 pg (27.0-31.0); Mean Corpuscular Volume 93.3 fl (78.0-98.0); Platelet Count 369 10x3/uL (130-400); RBC Distribution Width 15.2 % (11.5-14.5); Red Blood Cell (RBC) Count 3.71 mill/uL (4.20-5.40); White Blood Cell (WBC) Count 6.5 10x3/uL (4.8-10.8)
[2022-04-23 06:32] LABS: Anion Gap 9 mmol/L (10-20); BUN (Urea Nitrogen) 6 mg/dL (9.8-20.1); Calc. Creatinine Clearance 66 mL/min (70-130); Calcium 8.9 mg/dL (7.8-10.44); Carbon Dioxide 22 mmol/L (23-31); Chloride 110 mmol/L (98-107); Estimated GFR 65; Glucose 91 mg/dL (83-110); Potassium 3.5 mmol/L (3.5-5.1); Sodium 137 mmol/L (136-145)
[2022-04-23] MEDS: Potassium Chloride 20 MEQ TAB PO SCH ×2 (08:49→17:49)
[2022-04-23] MEDS: Fish Oil 1,000 MG CAP PO SCH (08:49)
[2022-04-23] MEDS: Saccharomyces boulardii 250 MG CAP PO SCH (08:49)
[2022-04-23] MEDS: Aspirin 81 mg Enteric Coated Tablet PO SCH (08:50)
[2022-04-23] MEDS: Ascorbic Acid 500 mg Chewable Tablet PO SCH (08:50)
[2022-04-23] MEDS: Folic Acid 1 MG TAB PO SCH (08:50)
[2022-04-23] MEDS: Rivaroxaban 10 MG TAB PO SCH (17:48)
[2022-04-23] MEDS: Melatonin 3 MG TAB PO SCH (20:50)
[2022-04-23] MEDS: Atorvastatin Calcium 10 MG TAB PO SCH (20:50)
[2022-04-24] MEDS: Levothyroxine Sodium 88 MCG TAB PO SCH (06:00)
[2022-04-24] MEDS: Ascorbic Acid 500 mg Chewable Tablet PO SCH (09:22)
[2022-04-24] MEDS: Folic Acid 1 MG TAB PO SCH (09:22)
[2022-04-24] MEDS: Aspirin 81 mg Enteric Coated Tablet PO SCH (09:22)
[2022-04-24] MEDS: Saccharomyces boulardii 250 MG CAP PO SCH (09:22)
[2022-04-24] MEDS: Fish Oil 1,000 MG CAP PO SCH (09:22)
[2022-04-24] MEDS: Potassium Chloride 20 MEQ TAB PO SCH (09:22)
[2022-04-24 09:36] VITALS: BP 131/68; TEMP 98
== END 2022-04-24 11:45 | disposition home or self-care (01) | DRG 948 ==
LOC: NAV ACUTE 15:36
PROVIDERS: ADMIT General Practice; ATTEND Family Medicine
DX: R53.81 Other malaise (principal); I82.409 Acute embolism and thrombosis of unspecified deep veins of unspecified lower extremity; N17.9 Acute kidney failure, unspecified; R53.1 Weakness; E87.6 Hypokalemia; E78.5 Hyperlipidemia, unspecified; Z20.822 Contact with and (suspected) exposure to COVID-19; I10 Essential (primary) hypertension; M06.9 Rheumatoid arthritis, unspecified; Z96.653 Presence of artificial knee joint, bilateral; G89.29 Other chronic pain; D64.9 Anemia, unspecified; E83.51 Hypocalcemia; E03.9 Hypothyroidism, unspecified; Z79.01 Long term (current) use of anticoagulants; Z90.710 Acquired absence of both cervix and uterus; Z90.49 Acquired absence of other specified parts of digestive tract; Z91.048 Other nonmedicinal substance allergy status
CPT/HCPCS: 36415; 80048; 80053; 82330; 83735; 83970; 84100; 85014; 85018; 85025; 87811; J8610

== ENCOUNTER 2022-06-22 09:48 | Inpatient (IN) | payer MEDICARE, OTHER ==
[2022-06-22] MEDS ORDERED: Acetaminophen 325 MG TAB PO PRN (12:19)
[2022-06-22] MEDS ORDERED: Bisacodyl 5 MG TAB PO PRN (12:19)
[2022-06-22] MEDS ORDERED: Ondansetron ODT 4 MG TAB SL PRN (12:19)
[2022-06-22] MEDS: HYDROcodone/Acetaminophen 5/325 mg Tablet PO PRN ×2 (14:42→20:25)
[2022-06-22 15:41] LABS: SARS-CoV-2 NAA Rapid Test Not Detected (NotDetected)
[2022-06-22] MEDS ORDERED: Non-Formulary Item 1 EACH (Rivaroxaban [Xarelto] 20 MG Tablet) PO SCH (17:00)
[2022-06-22] MEDS: Rivaroxaban 10 MG TAB PO SCH (17:50)
[2022-06-22] MEDS: Metoprolol Tartrate 25 MG TAB PO SCH (20:24)
[2022-06-22] MEDS: Famotidine 20 MG TAB PO SCH (20:24)
[2022-06-22] MEDS: Atorvastatin Calcium 10 MG TAB PO SCH (20:25)
[2022-06-22] MEDS: Melatonin 3 MG TAB PO PRN (20:25)
[2022-06-22] MEDS ORDERED: Metoprolol Tartrate 50 MG TAB PO SCH (21:00)
[2022-06-23] MEDS: Levothyroxine Sodium 88 MCG TAB PO SCH (05:55)
[2022-06-23] MEDS ORDERED: Non-Formulary Item 1 EACH (Levothyroxine Sodium [Levothyroxine] 88 MCG Capsule) PO SCH (06:00)
[2022-06-23 06:07] LABS: ALT (SGPT) 6 U/L (8-55); AST (SGOT) 17 U/L (5-34); Albumin 3.1 g/dL (3.4-4.8); Alkaline Phosphatase 49 U/L (40-110); Anion Gap 14 mmol/L (10-20); BUN (Urea Nitrogen) 16 mg/dL (9.8-20.1); Bilirubin, Total 0.3 mg/dL (0.2-1.2); Calc. Creatinine Clearance 70 mL/min (70-130); Chloride 106 mmol/L (98-107); Estimated GFR 65; Globulin 2.4 g/dL (2.4-3.5); Potassium 3.8 mmol/L (3.5-5.1); Protein, Total 5.5 g/dL (5.8-8.1); Sodium 139 mmol/L (136-145)
[2022-06-23 06:24] LABS: #Basophils 0.1 thou/uL (0.0-0.2); #Eosinphils 0.3 thou/uL (0.0-0.7); #Lymphocytes 1.4 thou/uL (1.20-3.40); #Monocytes 0.8 thou/uL (0.11-0.59); #Neutrophils 5.8 thou/uL (1.40-6.50); %Basophils 1.1 % (0.0-1.0); %Eosinophils 3.2 % (0.0-10.0); %Lymphocytes 16.6 % (21.0-51.0); %Neutrophils 69.1 % (42.0-75.0); Hemoglobin 10.2 g/dL (12.0-16.0); Mean Corpuscular HGB CONC 32.3 g/dL (32.0-36.0); Mean Corpuscular Hemoglobin 31.4 pg (27.0-31.0); Mean Corpuscular Volume 97.2 fl (78.0-98.0); Mean Platelet Volume 7.5 fL (7.4-10.4); Platelet Count 331 10x3/uL (130-400); RBC Distribution Width 15.5 % (11.5-14.5); Red Blood Cell (RBC) Count 3.24 mill/uL (4.20-5.40); White Blood Cell (WBC) Count 8.5 10x3/uL (4.8-10.8)
[2022-06-23 06:32] LABS: Carbon Dioxide 23 mmol/L (23-31); Glucose 99 mg/dL (83-110)
[2022-06-23] MEDS ORDERED: LACTOBACILLUS ACIDOPHILUS PO SCH (09:00)
[2022-06-23] MEDS: Senokot S 8.6-50 MG TAB PO PRN (09:23)
[2022-06-23] MEDS: Ascorbic Acid 500 mg Chewable Tablet PO SCH (09:23)
[2022-06-23] MEDS: Famotidine 20 MG TAB PO SCH ×2 (09:23→20:52)
[2022-06-23] MEDS: Fish Oil 1,000 MG CAP PO SCH (09:23)
[2022-06-23] MEDS: Floranex 1 GM Packet PO SCH (09:24)
[2022-06-23] MEDS: HYDROcodone/Acetaminophen 5/325 mg Tablet PO PRN ×4 (09:24→22:40)
[2022-06-23] MEDS: Folic Acid 1 MG TAB PO SCH (09:24)
[2022-06-23] MEDS: Metoprolol Tartrate 25 MG TAB PO SCH ×2 (09:35→20:52)
[2022-06-23] MEDS: Rivaroxaban 10 MG TAB PO SCH (16:39)
[2022-06-23] MEDS: Atorvastatin Calcium 10 MG TAB PO SCH (20:52)
[2022-06-24] MEDS: Levothyroxine Sodium 88 MCG TAB PO SCH (06:38)
[2022-06-24] MEDS: HYDROcodone/Acetaminophen 5/325 mg Tablet PO PRN ×3 (06:38→19:10)
[2022-06-24] MEDS: Floranex 1 GM Packet PO SCH (08:13)
[2022-06-24] MEDS: Folic Acid 1 MG TAB PO SCH (08:13)
[2022-06-24] MEDS: Famotidine 20 MG TAB PO SCH ×2 (08:13→20:42)
[2022-06-24] MEDS: Fish Oil 1,000 MG CAP PO SCH (08:13)
[2022-06-24] MEDS: Metoprolol Tartrate 25 MG TAB PO SCH ×2 (08:13→20:42)
[2022-06-24] MEDS: Ascorbic Acid 500 mg Chewable Tablet PO SCH (08:13)
[2022-06-24] MEDS: Rivaroxaban 10 MG TAB PO SCH (17:38)
[2022-06-24] MEDS: Atorvastatin Calcium 10 MG TAB PO SCH (20:42)
[2022-06-25] MEDS: HYDROcodone/Acetaminophen 5/325 mg Tablet PO PRN ×3 (05:25→19:46)
[2022-06-25] MEDS: Levothyroxine Sodium 88 MCG TAB PO SCH (05:25)
[2022-06-25] MEDS: Fish Oil 1,000 MG CAP PO SCH (07:55)
[2022-06-25] MEDS: Folic Acid 1 MG TAB PO SCH (07:55)
[2022-06-25] MEDS: Ascorbic Acid 500 mg Chewable Tablet PO SCH (07:55)
[2022-06-25] MEDS: Saccharomyces boulardii 250 MG CAP PO SCH (07:55)
[2022-06-25] MEDS: Metoprolol Tartrate 25 MG TAB PO SCH ×2 (07:55→20:39)
[2022-06-25] MEDS: Famotidine 20 MG TAB PO SCH ×2 (07:55→20:39)
[2022-06-25] MEDS: Rivaroxaban 10 MG TAB PO SCH (17:26)
[2022-06-25] MEDS: Atorvastatin Calcium 10 MG TAB PO SCH (20:39)
[2022-06-26] MEDS: HYDROcodone/Acetaminophen 5/325 mg Tablet PO PRN ×5 (00:33→20:37)
[2022-06-26] MEDS: Levothyroxine Sodium 88 MCG TAB PO SCH (05:35)
[2022-06-26] MEDS: Fish Oil 1,000 MG CAP PO SCH (09:22)
[2022-06-26] MEDS: Folic Acid 1 MG TAB PO SCH (09:22)
[2022-06-26] MEDS: Ascorbic Acid 500 mg Chewable Tablet PO SCH (09:22)
[2022-06-26] MEDS: Saccharomyces boulardii 250 MG CAP PO SCH (09:22)
[2022-06-26] MEDS: Metoprolol Tartrate 25 MG TAB PO SCH ×2 (09:22→20:38)
[2022-06-26] MEDS: Famotidine 20 MG TAB PO SCH ×2 (09:23→20:38)
[2022-06-26] MEDS: Rivaroxaban 10 MG TAB PO SCH (17:08)
[2022-06-26] MEDS: Atorvastatin Calcium 10 MG TAB PO SCH (20:38)
[2022-06-27] MEDS: HYDROcodone/Acetaminophen 5/325 mg Tablet PO PRN ×4 (02:35→20:18)
[2022-06-27] MEDS: Levothyroxine Sodium 88 MCG TAB PO SCH (05:43)
[2022-06-27] MEDS: Ascorbic Acid 500 mg Chewable Tablet PO SCH (08:42)
[2022-06-27] MEDS: Fish Oil 1,000 MG CAP PO SCH (08:42)
[2022-06-27] MEDS: Saccharomyces boulardii 250 MG CAP PO SCH (08:42)
[2022-06-27] MEDS: Metoprolol Tartrate 25 MG TAB PO SCH ×2 (08:42→20:18)
[2022-06-27] MEDS: Famotidine 20 MG TAB PO SCH ×2 (08:42→20:18)
[2022-06-27] MEDS: Folic Acid 1 MG TAB PO SCH (08:42)
[2022-06-27] MEDS: Rivaroxaban 10 MG TAB PO SCH (17:43)
[2022-06-27] MEDS: Atorvastatin Calcium 10 MG TAB PO SCH (20:18)
[2022-06-28 05:42] LABS: #Basophils 0.1 thou/uL (0.0-0.2); #Eosinphils 0.2 thou/uL (0.0-0.7); #Lymphocytes 1.4 thou/uL (1.20-3.40); #Monocytes 0.9 thou/uL (0.11-0.59); #Neutrophils 3.2 thou/uL (1.40-6.50); %Basophils 2.1 % (0.0-1.0); %Eosinophils 3.3 % (0.0-10.0); %Lymphocytes 23.6 % (21.0-51.0); %Monocytes 15.5 % (0.0-10.0); %Neutrophils 55.5 % (42.0-75.0); Hemoglobin 10.9 g/dL (12.0-16.0); Mean Corpuscular Hemoglobin 31.1 pg (27.0-31.0); Mean Corpuscular Volume 97.3 fl (78.0-98.0); Mean Platelet Volume 5.8 fL (7.4-10.4); Platelet Count 457 10x3/uL (130-400); RBC Distribution Width 15.5 % (11.5-14.5); Red Blood Cell (RBC) Count 3.49 mill/uL (4.20-5.40); White Blood Cell (WBC) Count 5.7 10x3/uL (4.8-10.8)
[2022-06-28 05:55] LABS: ALT (SGPT) 8 U/L (8-55); AST (SGOT) 15 U/L (5-34); Albumin 3.3 g/dL (3.4-4.8); Alkaline Phosphatase 56 U/L (40-110); Anion Gap 15 mmol/L (10-20); BUN (Urea Nitrogen) 12 mg/dL (9.8-20.1); Bilirubin, Total 0.4 mg/dL (0.2-1.2); Calc. Creatinine Clearance 72 mL/min (70-130); Calcium 9.2 mg/dL (7.8-10.44); Carbon Dioxide 22 mmol/L (23-31); Chloride 108 mmol/L (98-107); Estimated GFR 68; Globulin 2.7 g/dL (2.4-3.5); Glucose 92 mg/dL (83-110); Phosphorus 3.5 mg/dL (2.3-4.7); Potassium 3.8 mmol/L (3.5-5.1); Sodium 141 mmol/L (136-145)
[2022-06-28] MEDS: Levothyroxine Sodium 88 MCG TAB PO SCH (06:23)
[2022-06-28] MEDS: Senokot S 8.6-50 MG TAB PO PRN (07:48)
[2022-06-28] MEDS: HYDROcodone/Acetaminophen 5/325 mg Tablet PO PRN ×3 (07:48→20:15)
[2022-06-28] MEDS: Fish Oil 1,000 MG CAP PO SCH (07:49)
[2022-06-28] MEDS: Saccharomyces boulardii 250 MG CAP PO SCH (07:49)
[2022-06-28] MEDS: Metoprolol Tartrate 25 MG TAB PO SCH ×2 (07:50→20:18)
[2022-06-28] MEDS: Famotidine 20 MG TAB PO SCH ×2 (07:50→20:18)
[2022-06-28] MEDS: Ascorbic Acid 500 mg Chewable Tablet PO SCH (07:50)
[2022-06-28] MEDS: Folic Acid 1 MG TAB PO SCH (07:50)
[2022-06-28] MEDS: Methotrexate Sodium 2.5 MG TAB PO SCH (11:12)
[2022-06-28] MEDS: Rivaroxaban 10 MG TAB PO SCH (16:36)
[2022-06-28 20:08] LABS: Bilirubin Negative (Negative); Blood, Urine Negative (Negative); Clarity Clear (Clear); Glucose, Urine (Dipstick) Negative (Negative); Ketone, Urine Negative (Negative); Leukocyte Trace (Negative); Nitrite Negative (Negative); Protein, Urine (Dipstick) Negative (Neg-Trace); Specific Gravity, Urine 1.015 (1.005-1.030); Urobilinogen 0.2 mg/dL (Less than 2)
[2022-06-28] MEDS: Atorvastatin Calcium 10 MG TAB PO SCH (20:18)
[2022-06-28 20:20] LABS: CAUTI Indications for Culture Alt mental st,lethar; WBC/HPF 0-3 HPF (0-3)
[2022-06-28 20:21] LABS: Urine Culture Reflex No No
[2022-06-29] MEDS: Levothyroxine Sodium 88 MCG TAB PO SCH (06:27)
[2022-06-29] MEDS: Fish Oil 1,000 MG CAP PO SCH (08:42)
[2022-06-29] MEDS: Famotidine 20 MG TAB PO SCH ×2 (08:42→21:00)
[2022-06-29] MEDS: Ascorbic Acid 500 mg Chewable Tablet PO SCH (08:42)
[2022-06-29] MEDS: Saccharomyces boulardii 250 MG CAP PO SCH (08:42)
[2022-06-29] MEDS: Folic Acid 1 MG TAB PO SCH (08:42)
[2022-06-29] MEDS: Metoprolol Tartrate 25 MG TAB PO SCH ×2 (08:42→21:00)
[2022-06-29] MEDS: HYDROcodone/Acetaminophen 5/325 mg Tablet PO PRN ×2 (08:48→20:59)
[2022-06-29] MEDS: Rivaroxaban 10 MG TAB PO SCH (17:00)
[2022-06-29] MEDS: Atorvastatin Calcium 10 MG TAB PO SCH (21:01)
[2022-06-30] MEDS: Levothyroxine Sodium 88 MCG TAB PO SCH (06:08)
[2022-06-30] MEDS: Famotidine 20 MG TAB PO SCH ×2 (08:45→21:44)
[2022-06-30] MEDS: Ascorbic Acid 500 mg Chewable Tablet PO SCH (08:45)
[2022-06-30] MEDS: Metoprolol Tartrate 25 MG TAB PO SCH ×2 (08:45→21:44)
[2022-06-30] MEDS: Folic Acid 1 MG TAB PO SCH (08:45)
[2022-06-30] MEDS: Saccharomyces boulardii 250 MG CAP PO SCH (08:45)
[2022-06-30] MEDS: Fish Oil 1,000 MG CAP PO SCH (08:45)
[2022-06-30] MEDS: HYDROcodone/Acetaminophen 5/325 mg Tablet PO PRN ×2 (08:51→14:37)
[2022-06-30] MEDS: Rivaroxaban 10 MG TAB PO SCH (17:47)
[2022-06-30] MEDS: Atorvastatin Calcium 10 MG TAB PO SCH (21:45)
[2022-07-01] MEDS: Levothyroxine Sodium 88 MCG TAB PO SCH (06:20)
[2022-07-01] MEDS: HYDROcodone/Acetaminophen 5/325 mg Tablet PO PRN ×3 (08:28→20:59)
[2022-07-01] MEDS: Ascorbic Acid 500 mg Chewable Tablet PO SCH (08:29)
[2022-07-01] MEDS: Folic Acid 1 MG TAB PO SCH (08:29)
[2022-07-01] MEDS: Famotidine 20 MG TAB PO SCH ×2 (08:29→20:59)
[2022-07-01] MEDS: Cholecalciferol 1,000 UNITS (25 MCG) TAB PO SCH (08:29)
[2022-07-01] MEDS: Metoprolol Tartrate 25 MG TAB PO SCH ×2 (08:29→20:59)
[2022-07-01] MEDS: Saccharomyces boulardii 250 MG CAP PO SCH (08:29)
[2022-07-01] MEDS: Fish Oil 1,000 MG CAP PO SCH (08:29)
[2022-07-01] MEDS: Rivaroxaban 10 MG TAB PO SCH (17:30)
[2022-07-01] MEDS: Atorvastatin Calcium 10 MG TAB PO SCH (20:59)
[2022-07-02] MEDS: Levothyroxine Sodium 88 MCG TAB PO SCH (06:02)
[2022-07-02] MEDS: Saccharomyces boulardii 250 MG CAP PO SCH (07:56)
[2022-07-02] MEDS: Ascorbic Acid 500 mg Chewable Tablet PO SCH (07:56)
[2022-07-02] MEDS: Famotidine 20 MG TAB PO SCH ×2 (07:56→20:34)
[2022-07-02] MEDS: Cholecalciferol 1,000 UNITS (25 MCG) TAB PO SCH (07:56)
[2022-07-02] MEDS: Fish Oil 1,000 MG CAP PO SCH (07:56)
[2022-07-02] MEDS: Folic Acid 1 MG TAB PO SCH (07:57)
[2022-07-02] MEDS: HYDROcodone/Acetaminophen 5/325 mg Tablet PO PRN ×3 (07:57→20:33)
[2022-07-02] MEDS: Metoprolol Tartrate 25 MG TAB PO SCH ×2 (07:59→20:34)
[2022-07-02] MEDS: Rivaroxaban 10 MG TAB PO SCH (17:20)
[2022-07-02] MEDS: Atorvastatin Calcium 10 MG TAB PO SCH (20:34)
[2022-07-03 05:16] LABS: #Basophils 0.1 thou/uL (0.0-0.2); #Eosinphils 0.2 thou/uL (0.0-0.7); #Lymphocytes 1.8 thou/uL (1.20-3.40); #Monocytes 0.6 thou/uL (0.11-0.59); #Neutrophils 3.9 thou/uL (1.40-6.50); %Basophils 0.9 % (0.0-1.0); %Eosinophils 3.6 % (0.0-10.0); %Lymphocytes 26.6 % (21.0-51.0); %Monocytes 9.1 % (0.0-10.0); %Neutrophils 59.8 % (42.0-75.0); Hemoglobin 9.9 g/dL (12.0-16.0); Mean Corpuscular HGB CONC 31.9 g/dL (32.0-36.0); Mean Corpuscular Hemoglobin 30.7 pg (27.0-31.0); Mean Corpuscular Volume 96.1 fl (78.0-98.0); Mean Platelet Volume 6.6 fL (7.4-10.4); Platelet Count 517 10x3/uL (130-400); RBC Distribution Width 14.9 % (11.5-14.5); Red Blood Cell (RBC) Count 3.23 mill/uL (4.20-5.40); White Blood Cell (WBC) Count 6.6 10x3/uL (4.8-10.8)
[2022-07-03 05:31] LABS: Anion Gap 13 mmol/L (10-20); BUN (Urea Nitrogen) 12 mg/dL (9.8-20.1); Calc. Creatinine Clearance 76 mL/min (70-130); Carbon Dioxide 23 mmol/L (23-31); Chloride 109 mmol/L (98-107); Estimated GFR 72; Glucose 86 mg/dL (83-110); Potassium 3.8 mmol/L (3.5-5.1); Sodium 141 mmol/L (136-145)
[2022-07-03] MEDS: Levothyroxine Sodium 88 MCG TAB PO SCH (05:48)
[2022-07-03] MEDS: HYDROcodone/Acetaminophen 5/325 mg Tablet PO PRN ×3 (08:43→20:14)
[2022-07-03] MEDS: Metoprolol Tartrate 25 MG TAB PO SCH ×2 (08:55→20:14)
[2022-07-03] MEDS: Saccharomyces boulardii 250 MG CAP PO SCH (08:55)
[2022-07-03] MEDS: Fish Oil 1,000 MG CAP PO SCH (08:55)
[2022-07-03] MEDS: Famotidine 20 MG TAB PO SCH ×2 (08:55→20:14)
[2022-07-03] MEDS: Ascorbic Acid 500 mg Chewable Tablet PO SCH (08:55)
[2022-07-03] MEDS: Cholecalciferol 1,000 UNITS (25 MCG) TAB PO SCH (08:56)
[2022-07-03] MEDS: Folic Acid 1 MG TAB PO SCH (08:56)
[2022-07-03] MEDS: Rivaroxaban 10 MG TAB PO SCH (16:46)
[2022-07-03] MEDS: Atorvastatin Calcium 10 MG TAB PO SCH (20:14)
[2022-07-04] MEDS: Levothyroxine Sodium 88 MCG TAB PO SCH (05:55)
[2022-07-04] MEDS: Fish Oil 1,000 MG CAP PO SCH (08:01)
[2022-07-04] MEDS: Folic Acid 1 MG TAB PO SCH (08:01)
[2022-07-04] MEDS: Ascorbic Acid 500 mg Chewable Tablet PO SCH (08:01)
[2022-07-04] MEDS: Cholecalciferol 1,000 UNITS (25 MCG) TAB PO SCH (08:01)
[2022-07-04] MEDS: Saccharomyces boulardii 250 MG CAP PO SCH (08:02)
[2022-07-04] MEDS: Metoprolol Tartrate 25 MG TAB PO SCH ×2 (08:02→20:31)
[2022-07-04] MEDS: Famotidine 20 MG TAB PO SCH ×2 (08:02→20:31)
[2022-07-04] MEDS: HYDROcodone/Acetaminophen 5/325 mg Tablet PO PRN ×2 (09:07→20:31)
[2022-07-04] MEDS: Rivaroxaban 10 MG TAB PO SCH (17:34)
[2022-07-04] MEDS: Atorvastatin Calcium 10 MG TAB PO SCH (20:31)
[2022-07-05] MEDS: Levothyroxine Sodium 88 MCG TAB PO SCH (05:07)
[2022-07-05] MEDS: Fish Oil 1,000 MG CAP PO SCH (07:54)
[2022-07-05] MEDS: Cholecalciferol 1,000 UNITS (25 MCG) TAB PO SCH (07:54)
[2022-07-05] MEDS: Ascorbic Acid 500 mg Chewable Tablet PO SCH (07:55)
[2022-07-05] MEDS: Famotidine 20 MG TAB PO SCH ×2 (07:55→20:41)
[2022-07-05] MEDS: Folic Acid 1 MG TAB PO SCH (07:56)
[2022-07-05] MEDS: Metoprolol Tartrate 25 MG TAB PO SCH ×2 (07:56→20:41)
[2022-07-05] MEDS: Saccharomyces boulardii 250 MG CAP PO SCH (07:56)
[2022-07-05] MEDS: HYDROcodone/Acetaminophen 5/325 mg Tablet PO PRN ×3 (08:01→20:42)
[2022-07-05] MEDS: Methotrexate Sodium 2.5 MG TAB PO SCH (11:54)
[2022-07-05] MEDS: Rivaroxaban 10 MG TAB PO SCH (17:23)
[2022-07-05] MEDS: Atorvastatin Calcium 10 MG TAB PO SCH (20:41)
[2022-07-06] MEDS: Levothyroxine Sodium 88 MCG TAB PO SCH (05:24)
[2022-07-06 05:45] LABS: #Basophils 0.1 thou/uL (0.0-0.2); #Eosinphils 0.2 thou/uL (0.0-0.7); #Lymphocytes 1.6 thou/uL (1.20-3.40); #Monocytes 0.8 thou/uL (0.11-0.59); #Neutrophils 4.2 thou/uL (1.40-6.50); %Eosinophils 3.5 % (0.0-10.0); %Lymphocytes 23.3 % (21.0-51.0); %Monocytes 11.5 % (0.0-10.0); %Neutrophils 60.7 % (42.0-75.0); Hemoglobin 11.1 g/dL (12.0-16.0); Mean Corpuscular HGB CONC 31.8 g/dL (32.0-36.0); Mean Corpuscular Hemoglobin 30.4 pg (27.0-31.0); Mean Corpuscular Volume 95.5 fl (78.0-98.0); Mean Platelet Volume 6.5 fL (7.4-10.4); Platelet Count 462 10x3/uL (130-400); Red Blood Cell (RBC) Count 3.65 mill/uL (4.20-5.40); White Blood Cell (WBC) Count 6.9 10x3/uL (4.8-10.8)
[2022-07-06] MEDS: HYDROcodone/Acetaminophen 5/325 mg Tablet PO PRN ×2 (08:04→20:34)
[2022-07-06] MEDS: Cholecalciferol 1,000 UNITS (25 MCG) TAB PO SCH (08:05)
[2022-07-06] MEDS: Folic Acid 1 MG TAB PO SCH (08:05)
[2022-07-06] MEDS: Fish Oil 1,000 MG CAP PO SCH (08:05)
[2022-07-06] MEDS: Famotidine 20 MG TAB PO SCH ×2 (08:05→20:34)
[2022-07-06] MEDS: Metoprolol Tartrate 25 MG TAB PO SCH ×2 (08:05→20:34)
[2022-07-06] MEDS: Saccharomyces boulardii 250 MG CAP PO SCH (08:06)
[2022-07-06] MEDS: Ascorbic Acid 500 mg Chewable Tablet PO SCH (08:06)
[2022-07-06] MEDS: Rivaroxaban 10 MG TAB PO SCH (17:52)
[2022-07-06] MEDS: Atorvastatin Calcium 10 MG TAB PO SCH (20:34)
[2022-07-07] MEDS: Levothyroxine Sodium 88 MCG TAB PO SCH (05:26)
[2022-07-07] MEDS: HYDROcodone/Acetaminophen 5/325 mg Tablet PO PRN ×3 (07:13→20:17)
[2022-07-07] MEDS: Ascorbic Acid 500 mg Chewable Tablet PO SCH (07:14)
[2022-07-07] MEDS: Cholecalciferol 1,000 UNITS (25 MCG) TAB PO SCH (07:14)
[2022-07-07] MEDS: Fish Oil 1,000 MG CAP PO SCH (07:14)
[2022-07-07] MEDS: Famotidine 20 MG TAB PO SCH ×2 (07:14→20:16)
[2022-07-07] MEDS: Folic Acid 1 MG TAB PO SCH (07:14)
[2022-07-07] MEDS: Saccharomyces boulardii 250 MG CAP PO SCH (07:20)
[2022-07-07] MEDS: Metoprolol Tartrate 25 MG TAB PO SCH ×2 (07:23→20:16)
[2022-07-07] MEDS: Rivaroxaban 10 MG TAB PO SCH (16:11)
[2022-07-07] MEDS: Melatonin 3 MG TAB PO PRN (20:16)
[2022-07-07] MEDS: Atorvastatin Calcium 10 MG TAB PO SCH (20:16)
[2022-07-07] MEDS: Senokot S 8.6-50 MG TAB PO PRN (20:16)
[2022-07-08] MEDS: Levothyroxine Sodium 88 MCG TAB PO SCH (05:01)
[2022-07-08] MEDS: Cholecalciferol 1,000 UNITS (25 MCG) TAB PO SCH (07:33)
[2022-07-08] MEDS: Ascorbic Acid 500 mg Chewable Tablet PO SCH (07:33)
[2022-07-08] MEDS: Saccharomyces boulardii 250 MG CAP PO SCH (07:33)
[2022-07-08] MEDS: Folic Acid 1 MG TAB PO SCH (07:33)
[2022-07-08] MEDS: Famotidine 20 MG TAB PO SCH ×2 (07:33→20:23)
[2022-07-08] MEDS: Fish Oil 1,000 MG CAP PO SCH (07:33)
[2022-07-08] MEDS: Metoprolol Tartrate 25 MG TAB PO SCH ×2 (07:34→20:23)
[2022-07-08] MEDS: HYDROcodone/Acetaminophen 5/325 mg Tablet PO PRN ×2 (07:39→13:33)
[2022-07-08] MEDS: Rivaroxaban 10 MG TAB PO SCH (16:55)
[2022-07-08] MEDS: Atorvastatin Calcium 10 MG TAB PO SCH (20:23)
[2022-07-09] MEDS: HYDROcodone/Acetaminophen 5/325 mg Tablet PO PRN ×4 (00:06→20:37)
[2022-07-09] MEDS: Levothyroxine Sodium 88 MCG TAB PO SCH (05:24)
[2022-07-09] MEDS: Fish Oil 1,000 MG CAP PO SCH (08:26)
[2022-07-09] MEDS: Cholecalciferol 1,000 UNITS (25 MCG) TAB PO SCH (08:27)
[2022-07-09] MEDS: Saccharomyces boulardii 250 MG CAP PO SCH (08:27)
[2022-07-09] MEDS: Famotidine 20 MG TAB PO SCH ×2 (08:27→20:35)
[2022-07-09] MEDS: Ascorbic Acid 500 mg Chewable Tablet PO SCH (08:27)
[2022-07-09] MEDS: Folic Acid 1 MG TAB PO SCH (08:28)
[2022-07-09] MEDS: Metoprolol Tartrate 25 MG TAB PO SCH ×2 (08:28→20:35)
[2022-07-09] MEDS: Senokot S 8.6-50 MG TAB PO PRN (10:14)
[2022-07-09] MEDS: Rivaroxaban 10 MG TAB PO SCH (17:29)
[2022-07-09] MEDS: Atorvastatin Calcium 10 MG TAB PO SCH (20:35)
[2022-07-09] MEDS: Melatonin 3 MG TAB PO PRN (20:35)
[2022-07-10] MEDS: Levothyroxine Sodium 88 MCG TAB PO SCH (05:14)
[2022-07-10] MEDS: Fish Oil 1,000 MG CAP PO SCH (07:38)
[2022-07-10] MEDS: Cholecalciferol 1,000 UNITS (25 MCG) TAB PO SCH (07:39)
[2022-07-10] MEDS: Saccharomyces boulardii 250 MG CAP PO SCH (07:39)
[2022-07-10] MEDS: Famotidine 20 MG TAB PO SCH ×2 (07:39→21:19)
[2022-07-10] MEDS: Metoprolol Tartrate 25 MG TAB PO SCH ×2 (07:39→21:19)
[2022-07-10] MEDS: Senokot S 8.6-50 MG TAB PO PRN (07:39)
[2022-07-10] MEDS: Folic Acid 1 MG TAB PO SCH (07:39)
[2022-07-10] MEDS: HYDROcodone/Acetaminophen 5/325 mg Tablet PO PRN ×4 (07:40→21:19)
[2022-07-10] MEDS: Ascorbic Acid 500 mg Chewable Tablet PO SCH (07:40)
[2022-07-10] MEDS: Rivaroxaban 10 MG TAB PO SCH (17:06)
[2022-07-10] MEDS: Atorvastatin Calcium 10 MG TAB PO SCH (21:19)
[2022-07-10] MEDS: Melatonin 3 MG TAB PO PRN (21:19)
[2022-07-11 06:00] LABS: #Basophils 0.1 thou/uL (0.0-0.2); #Eosinphils 0.3 thou/uL (0.0-0.7); #Lymphocytes 1.4 thou/uL (1.20-3.40); #Monocytes 0.5 thou/uL (0.11-0.59); #Neutrophils 2.6 thou/uL (1.40-6.50); %Basophils 1.6 % (0.0-1.0); %Eosinophils 5.7 % (0.0-10.0); %Lymphocytes 28.8 % (21.0-51.0); %Monocytes 10.8 % (0.0-10.0); %Neutrophils 53.2 % (42.0-75.0); Hemoglobin 10.7 g/dL (12.0-16.0); Mean Corpuscular HGB CONC 32.2 g/dL (32.0-36.0); Mean Corpuscular Volume 96.3 fl (78.0-98.0); Mean Platelet Volume 6.7 fL (7.4-10.4); Platelet Count 392 10x3/uL (130-400); Red Blood Cell (RBC) Count 3.45 mill/uL (4.20-5.40); White Blood Cell (WBC) Count 4.8 10x3/uL (4.8-10.8)
[2022-07-11] MEDS: Levothyroxine Sodium 88 MCG TAB PO SCH (06:10)
[2022-07-11 06:14] LABS: Anion Gap 15 mmol/L (10-20); BUN (Urea Nitrogen) 14 mg/dL (9.8-20.1); Calc. Creatinine Clearance 66 mL/min (70-130); Calcium 9.3 mg/dL (7.8-10.44); Carbon Dioxide 21 mmol/L (23-31); Chloride 109 mmol/L (98-107); Estimated GFR 66; Glucose 87 mg/dL (83-110); Potassium 3.8 mmol/L (3.5-5.1); Sodium 141 mmol/L (136-145)
[2022-07-11] MEDS: Folic Acid 1 MG TAB PO SCH (07:50)
[2022-07-11] MEDS: Saccharomyces boulardii 250 MG CAP PO SCH (07:50)
[2022-07-11] MEDS: Ascorbic Acid 500 mg Chewable Tablet PO SCH (07:50)
[2022-07-11] MEDS: Famotidine 20 MG TAB PO SCH ×2 (07:51→21:01)
[2022-07-11] MEDS: Cholecalciferol 1,000 UNITS (25 MCG) TAB PO SCH (07:51)
[2022-07-11] MEDS: Fish Oil 1,000 MG CAP PO SCH (07:51)
[2022-07-11] MEDS: HYDROcodone/Acetaminophen 5/325 mg Tablet PO PRN ×3 (07:51→17:19)
[2022-07-11] MEDS: Metoprolol Tartrate 25 MG TAB PO SCH ×2 (07:51→21:01)
[2022-07-11] MEDS: Rivaroxaban 10 MG TAB PO SCH (17:20)
[2022-07-11] MEDS: Atorvastatin Calcium 10 MG TAB PO SCH (21:01)
[2022-07-11] MEDS: Melatonin 3 MG TAB PO PRN (21:01)
[2022-07-12] MEDS: Levothyroxine Sodium 88 MCG TAB PO SCH (06:19)
[2022-07-12] MEDS: Famotidine 20 MG TAB PO SCH ×2 (07:52→20:42)
[2022-07-12] MEDS: Cholecalciferol 1,000 UNITS (25 MCG) TAB PO SCH (07:52)
[2022-07-12] MEDS: Folic Acid 1 MG TAB PO SCH (07:52)
[2022-07-12] MEDS: Fish Oil 1,000 MG CAP PO SCH (07:52)
[2022-07-12] MEDS: HYDROcodone/Acetaminophen 5/325 mg Tablet PO PRN ×2 (07:53→20:41)
[2022-07-12] MEDS: Saccharomyces boulardii 250 MG CAP PO SCH (07:53)
[2022-07-12] MEDS: Ascorbic Acid 500 mg Chewable Tablet PO SCH (07:53)
[2022-07-12] MEDS: Metoprolol Tartrate 25 MG TAB PO SCH ×2 (07:53→20:42)
[2022-07-12] MEDS: Methotrexate Sodium 2.5 MG TAB PO SCH (12:07)
[2022-07-12] MEDS: Rivaroxaban 10 MG TAB PO SCH (17:19)
[2022-07-12] MEDS: Melatonin 3 MG TAB PO PRN (20:41)
[2022-07-12] MEDS: Atorvastatin Calcium 10 MG TAB PO SCH (20:42)
[2022-07-13] MEDS: Levothyroxine Sodium 88 MCG TAB PO SCH (06:45)
[2022-07-13] MEDS: Fish Oil 1,000 MG CAP PO SCH (09:31)
[2022-07-13] MEDS: Famotidine 20 MG TAB PO SCH ×2 (09:31→21:00)
[2022-07-13] MEDS: Cholecalciferol 1,000 UNITS (25 MCG) TAB PO SCH (09:32)
[2022-07-13] MEDS: Saccharomyces boulardii 250 MG CAP PO SCH (09:32)
[2022-07-13] MEDS: Ascorbic Acid 500 mg Chewable Tablet PO SCH (09:33)
[2022-07-13] MEDS: Metoprolol Tartrate 25 MG TAB PO SCH ×2 (09:33→21:00)
[2022-07-13] MEDS: Folic Acid 1 MG TAB PO SCH (09:36)
[2022-07-13] MEDS: HYDROcodone/Acetaminophen 5/325 mg Tablet PO PRN ×2 (09:38→21:01)
[2022-07-13] MEDS: Rivaroxaban 10 MG TAB PO SCH (17:31)
[2022-07-13] MEDS: Melatonin 3 MG TAB PO PRN (21:00)
[2022-07-13] MEDS: Atorvastatin Calcium 10 MG TAB PO SCH (21:00)
[2022-07-14] MEDS: Levothyroxine Sodium 88 MCG TAB PO SCH (05:54)
[2022-07-14] MEDS: Metoprolol Tartrate 25 MG TAB PO SCH ×2 (08:18→21:13)
[2022-07-14] MEDS: Famotidine 20 MG TAB PO SCH ×2 (08:18→21:13)
[2022-07-14] MEDS: Fish Oil 1,000 MG CAP PO SCH (08:18)
[2022-07-14] MEDS: Saccharomyces boulardii 250 MG CAP PO SCH (08:18)
[2022-07-14] MEDS: Cholecalciferol 1,000 UNITS (25 MCG) TAB PO SCH (08:18)
[2022-07-14] MEDS: Ascorbic Acid 500 mg Chewable Tablet PO SCH (08:19)
[2022-07-14] MEDS: Folic Acid 1 MG TAB PO SCH (08:19)
[2022-07-14] MEDS: HYDROcodone/Acetaminophen 5/325 mg Tablet PO PRN ×2 (08:21→14:16)
[2022-07-14] MEDS: Rivaroxaban 10 MG TAB PO SCH (17:22)
[2022-07-14] MEDS: Atorvastatin Calcium 10 MG TAB PO SCH (21:13)
[2022-07-14] MEDS: Melatonin 3 MG TAB PO PRN (21:13)
[2022-07-15] MEDS: Levothyroxine Sodium 88 MCG TAB PO SCH (05:55)
[2022-07-15 08:03] VITALS: BP 129/62; TEMP 98.2
[2022-07-15] MEDS: Saccharomyces boulardii 250 MG CAP PO SCH (08:10)
[2022-07-15] MEDS: Fish Oil 1,000 MG CAP PO SCH (08:10)
[2022-07-15] MEDS: Ascorbic Acid 500 mg Chewable Tablet PO SCH (08:11)
[2022-07-15] MEDS: Folic Acid 1 MG TAB PO SCH (08:11)
[2022-07-15] MEDS: Metoprolol Tartrate 25 MG TAB PO SCH (08:11)
[2022-07-15] MEDS: Famotidine 20 MG TAB PO SCH (08:11)
[2022-07-15] MEDS: Cholecalciferol 1,000 UNITS (25 MCG) TAB PO SCH (08:11)
[2022-07-15] MEDS: HYDROcodone/Acetaminophen 5/325 mg Tablet PO PRN (08:13)
[2022-07-15 10:31] VITALS: BMI 28.3
[2022-07-15] MEDS ORDERED: HYDROcodone/Acetaminophen 5/325 mg Tablet PO PRN (11:24)
== END 2022-07-15 12:08 | disposition home health service (06) | DRG 560 ==
LOC: NAV ACUTE 12:35
PROVIDERS: ADMIT Family Medicine; ATTEND Family Medicine
DX: Z47.1 Aftercare following joint replacement surgery (principal); D62 Acute posthemorrhagic anemia; Z20.822 Contact with and (suspected) exposure to COVID-19; E78.5 Hyperlipidemia, unspecified; I10 Essential (primary) hypertension; E03.9 Hypothyroidism, unspecified; M81.0 Age-related osteoporosis without current pathological fracture; R53.81 Other malaise; E55.9 Vitamin D deficiency, unspecified; M06.9 Rheumatoid arthritis, unspecified; Z96.653 Presence of artificial knee joint, bilateral; Z96.641 Presence of right artificial hip joint; K59.00 Constipation, unspecified; Z90.710 Acquired absence of both cervix and uterus; Z86.718 Personal history of other venous thrombosis and embolism; Z90.49 Acquired absence of other specified parts of digestive tract; Z91.018 Allergy to other foods; Z87.891 Personal history of nicotine dependence; Z79.890 Hormone replacement therapy; Z79.01 Long term (current) use of anticoagulants; Z79.899 Other long term (current) drug therapy
CPT/HCPCS: 36415; 80048; 80053; 81001; 82306; 83735; 84100; 84439; 84443; 85025; 87811; J8610; U0002

== ENCOUNTER 2024-01-23 11:23 | Inpatient (IN) | payer MEDICARE, OTHER ==
[2024-01-29] MEDS: Rivaroxaban 10 MG TAB PO SCH (17:27)
[2024-01-29] MEDS: Sacubitril 24MG/Valsartan 26 MG TAB PO SCH (20:23)
[2024-01-29] MEDS: Metoprolol Tartrate 25 MG TAB PO SCH (20:23)
[2024-01-29] MEDS: Atorvastatin Calcium 10 MG TAB PO SCH (20:23)
[2024-01-30] MEDS: Levothyroxine Sodium 100 MCG TAB PO SCH (05:45)
[2024-01-30 06:13] LABS: #Basophils 0.2 thou/uL (0.0-0.2); #Eosinophils 0.3 thou/uL (0.0-0.7); #Lymphocytes 1.8 thou/uL (1.20-3.40); #Monocytes 1.1 thou/uL (0.11-0.59); #Neutrophils 9.5 thou/uL (1.40-6.50); %Basophils 1.5 % (0.0-1.0); %Eosinophils 2.2 % (0.0-10.0); %Monocytes 8.2 % (0.0-10.0); Hematocrit 31.3 % (36.0-47.0); Hemoglobin 9.7 g/dL (12.0-16.0); Mean Corpuscular HGB CONC 30.8 g/dL (32.0-36.0); Mean Corpuscular Hemoglobin 25.6 pg (27.0-31.0); Mean Corpuscular Volume 83.2 fl (78.0-98.0); Mean Platelet Volume 5.9 fL (7.4-10.4); Platelet Count 777 10x3/uL (130-400); RBC Distribution Width 17.9 % (11.5-14.5); Red Blood Cell (RBC) Count 3.77 mill/uL (4.20-5.40); White Blood Cell (WBC) Count 12.8 10x3/uL (4.8-10.8)
[2024-01-30 06:25] LABS: ALT (SGPT) 10 U/L (8-55); AST (SGOT) 12 U/L (5-34); Albumin 2.4 g/dL (3.4-4.8); Alkaline Phosphatase 49 U/L (40-110); BUN (Urea Nitrogen) 28 mg/dL (9.8-20.1); Bilirubin, Total 0.5 mg/dL (0.2-1.2); Calc. Creatinine Clearance 51 mL/min (70-130); Calcium 9.2 mg/dL (7.8-10.44); Carbon Dioxide 22 mmol/L (23-31); Estimated GFR 43; Globulin 3.6 g/dL (2.4-3.5); Glucose 104 mg/dL (83-110)
[2024-01-30 06:47] LABS: Anion Gap 16 mmol/L (10-20); Chloride 99 mmol/L (98-107); Potassium 4.5 mmol/L (3.5-5.1); Sodium 132 mmol/L (136-145)
[2024-01-30] MEDS: Floranex 1 GM Packet PO SCH (08:00)
[2024-01-30] MEDS: Metoprolol Tartrate 25 MG TAB PO SCH (09:00)
[2024-01-30] MEDS ORDERED: Furosemide 20 MG TAB PO SCH (09:00)
[2024-01-30] MEDS: Fish Oil 1,000 MG CAP PO SCH (09:02)
[2024-01-30] MEDS: Methotrexate Sodium 2.5 MG TAB PO SCH (09:02)
[2024-01-30] MEDS: Folic Acid 1 MG TAB PO SCH (09:02)
[2024-01-30] MEDS: Cholecalciferol 1,000 UNITS (25 MCG) TAB PO SCH (09:02)
[2024-01-30] MEDS: Aspirin 81 mg Enteric Coated Tablet PO SCH (09:02)
[2024-01-30] MEDS: Polyethylene Glycol 3350 17 GM Packet PO SCH (09:02)
[2024-01-30] MEDS: Furosemide 20 MG TAB PO SCH (09:09)
[2024-01-30] MEDS: Pantoprazole DR 40 MG TAB PO SCH (09:12)
[2024-01-30] MEDS ORDERED: Nitroglycerin 0.4 MG TAB 1 EACH SL PRN (14:33)
[2024-01-31 06:10] LABS: Anion Gap 18 mmol/L (10-20); BUN (Urea Nitrogen) 27 mg/dL (9.8-20.1); Calc. Creatinine Clearance 46 mL/min (70-130); Calcium 9.1 mg/dL (7.8-10.44); Carbon Dioxide 19 mmol/L (23-31); Chloride 99 mmol/L (98-107); Estimated GFR 38; Glucose 100 mg/dL (83-110); Potassium 4.7 mmol/L (3.5-5.1); Sodium 131 mmol/L (136-145)
[2024-01-31] MEDS: Sacubitril 24MG/Valsartan 26 MG TAB PO SCH (09:25)
[2024-02-01 05:50] LABS: #Basophils 0.1 thou/uL (0.0-0.2); #Eosinophils 0.1 thou/uL (0.0-0.7); #Monocytes 0.5 thou/uL (0.11-0.59); #Neutrophils 9.4 thou/uL (1.40-6.50); %Eosinophils 1.1 % (0.0-10.0); %Lymphocytes 9.1 % (21.0-51.0); %Monocytes 4.5 % (0.0-10.0); %Neutrophils 84.3 % (42.0-75.0); Hemoglobin 10.1 g/dL (12.0-16.0); Mean Corpuscular HGB CONC 31.6 g/dL (32.0-36.0); Mean Corpuscular Hemoglobin 25.9 pg (27.0-31.0); Mean Corpuscular Volume 82.1 fl (78.0-98.0); Mean Platelet Volume 5.8 fL (7.4-10.4); Platelet Count 777 10x3/uL (130-400); RBC Distribution Width 17.3 % (11.5-14.5); White Blood Cell (WBC) Count 11.1 10x3/uL (4.8-10.8)
[2024-02-01 06:08] LABS: Anion Gap 18 mmol/L (10-20); BUN (Urea Nitrogen) 23 mg/dL (9.8-20.1); Calc. Creatinine Clearance 55 mL/min (70-130); Calcium 9.1 mg/dL (7.8-10.44); Carbon Dioxide 17 mmol/L (23-31); Chloride 98 mmol/L (98-107); Estimated GFR 47; Glucose 120 mg/dL (83-110); Potassium 4.3 mmol/L (3.5-5.1); Sodium 129 mmol/L (136-145)
[2024-02-01] MEDS: Acetaminophen 325 MG TAB PO PRN (09:08)
[2024-02-01] MEDS: Ondansetron ODT 4 MG TAB PO PRN (17:50)
[2024-02-02 06:13] LABS: Anion Gap 19 mmol/L (10-20); BUN (Urea Nitrogen) 23 mg/dL (9.8-20.1); Calc. Creatinine Clearance 47 mL/min (70-130); Carbon Dioxide 17 mmol/L (23-31); Chloride 99 mmol/L (98-107); Estimated GFR 39; Glucose 94 mg/dL (83-110); Potassium 4.5 mmol/L (3.5-5.1); Sodium 130 mmol/L (136-145)
[2024-02-02 09:47] LABS: #Basophils 0.1 thou/uL (0.0-0.2); #Eosinophils 0.2 thou/uL (0.0-0.7); #Lymphocytes 0.7 thou/uL (1.20-3.40); #Monocytes 0.5 thou/uL (0.11-0.59); #Neutrophils 8.6 thou/uL (1.40-6.50); %Basophils 0.9 % (0.0-1.0); %Eosinophils 1.8 % (0.0-10.0); %Monocytes 4.7 % (0.0-10.0); %Neutrophils 85.6 % (42.0-75.0); Hematocrit 31.2 % (36.0-47.0); Hemoglobin 9.5 g/dL (12.0-16.0); Mean Corpuscular HGB CONC 30.6 g/dL (32.0-36.0); Mean Corpuscular Hemoglobin 25.3 pg (27.0-31.0); Mean Corpuscular Volume 82.7 fl (78.0-98.0); Platelet Count 985 10x3/uL (130-400); RBC Distribution Width 17.2 % (11.5-14.5); Red Blood Cell (RBC) Count 3.77 mill/uL (4.20-5.40); White Blood Cell (WBC) Count 10.1 10x3/uL (4.8-10.8)
[2024-02-02 13:15] LABS: Creatinine, Urine 65.53 mg/dL (47-110)
[2024-02-03 06:08] LABS: Anion Gap 16 mmol/L (10-20); BUN (Urea Nitrogen) 24 mg/dL (9.8-20.1); Calc. Creatinine Clearance 47 mL/min (70-130); Calcium 8.8 mg/dL (7.8-10.44); Carbon Dioxide 21 mmol/L (23-31); Chloride 96 mmol/L (98-107); Estimated GFR 38; Glucose 101 mg/dL (83-110); Potassium 4.3 mmol/L (3.5-5.1); Sodium 129 mmol/L (136-145)
[2024-02-03] MEDS: Bumetanide 1 MG TAB PO SCH (08:34)
[2024-02-03 12:15] LABS: Iron 10 ug/dL (50-170); Iron Binding Capacity, Total 264 mcg/dL (265-497)
[2024-02-03] MEDS: Ferrous Sulfate 325 MG TAB PO SCH (13:08)
[2024-02-03] MEDS: Ascorbic Acid 500 mg Chewable Tablet PO SCH (13:08)
[2024-02-04 06:05] LABS: Anion Gap 15 mmol/L (10-20); BUN (Urea Nitrogen) 21 mg/dL (9.8-20.1); Calc. Creatinine Clearance 55 mL/min (70-130); Calcium 9.1 mg/dL (7.6-10.4); Carbon Dioxide 22 mmol/L (23-31); Chloride 97 mmol/L (98-107); Estimated GFR 46; Glucose 100 mg/dL (83-110); Magnesium 1.8 mg/dL (1.6-2.6); Potassium 4.2 mmol/L (3.5-5.1); Sodium 130 mmol/L (136-145)
[2024-02-04] MEDS: Bumetanide 1 MG TAB PO SCH (08:33)
[2024-02-05 05:52] LABS: #Basophils 0.1 thou/uL (0.0-0.2); #Eosinophils 0.4 thou/uL (0.0-0.7); #Lymphocytes 0.9 thou/uL (1.20-3.40); #Neutrophils 4.6 thou/uL (1.40-6.50); %Basophils 1.7 % (0.0-1.0); %Eosinophils 5.8 % (0.0-10.0); %Lymphocytes 12.2 % (21.0-51.0); %Monocytes 14.4 % (0.0-10.0); %Neutrophils 65.8 % (42.0-75.0); Hemoglobin 8.5 g/dL (12.0-16.0); Mean Corpuscular HGB CONC 30.4 g/dL (32.0-36.0); Mean Corpuscular Volume 82.1 fl (78.0-98.0); Mean Platelet Volume 5.8 fL (7.4-10.4); Platelet Count 839 10x3/uL (130-400); RBC Distribution Width 17.6 % (11.5-14.5); Red Blood Cell (RBC) Count 3.42 mill/uL (4.20-5.40)
[2024-02-05 06:01] LABS: Anion Gap 14 mmol/L (10-20); BUN (Urea Nitrogen) 20 mg/dL (9.8-20.1); Calc. Creatinine Clearance 53 mL/min (70-130); Calcium 8.8 mg/dL (7.8-10.44); Carbon Dioxide 24 mmol/L (23-31); Chloride 98 mmol/L (98-107); Estimated GFR 45; Glucose 103 mg/dL (83-110); Potassium 3.8 mmol/L (3.5-5.1); Sodium 132 mmol/L (136-145)
[2024-02-05] MEDS: Ferrous Sulfate 325 MG TAB PO SCH (12:16)
[2024-02-05] MEDS: Ascorbic Acid 500 mg Chewable Tablet PO SCH (12:18)
[2024-02-06] MEDS: Bumetanide 1 MG TAB PO SCH (08:55)
[2024-02-07 05:18] LABS: #Basophils 0.1 thou/uL (0.0-0.2); #Eosinophils 0.6 thou/uL (0.0-0.7); #Lymphocytes 0.8 thou/uL (1.20-3.40); #Monocytes 0.9 thou/uL (0.11-0.59); %Basophils 1.3 % (0.0-1.0); %Eosinophils 7.5 % (0.0-10.0); %Lymphocytes 9.8 % (21.0-51.0); %Neutrophils 70.4 % (42.0-75.0); Hemoglobin 9.3 g/dL (12.0-16.0); Mean Corpuscular Hemoglobin 25.9 pg (27.0-31.0); Mean Corpuscular Volume 80.9 fl (78.0-98.0); Mean Platelet Volume 5.8 fL (7.4-10.4); Platelet Count 823 10x3/uL (130-400); Red Blood Cell (RBC) Count 3.58 mill/uL (4.20-5.40); White Blood Cell (WBC) Count 8.4 10x3/uL (4.8-10.8)
[2024-02-07 05:33] LABS: Anion Gap 15 mmol/L (10-20); BUN (Urea Nitrogen) 17 mg/dL (9.8-20.1); Calc. Creatinine Clearance 57 mL/min (70-130); Carbon Dioxide 28 mmol/L (23-31); Chloride 95 mmol/L (98-107); Estimated GFR 49; Glucose 99 mg/dL (83-110); Potassium 3.4 mmol/L (3.5-5.1); Sodium 135 mmol/L (136-145)
[2024-02-07] MEDS: Potassium Chloride 20 MEQ TAB PO SCH (09:28)
[2024-02-08 06:12] LABS: Anion Gap 17 mmol/L (10-20); BUN (Urea Nitrogen) 18 mg/dL (9.8-20.1); Calc. Creatinine Clearance 57 mL/min (70-130); Calcium 8.5 mg/dL (7.8-10.44); Carbon Dioxide 26 mmol/L (23-31); Chloride 96 mmol/L (98-107); Estimated GFR 48; Glucose 100 mg/dL (83-110); Potassium 3.6 mmol/L (3.5-5.1); Sodium 135 mmol/L (136-145)
[2024-02-10 06:01] LABS: #Basophils 0.1 thou/uL (0.0-0.2); #Eosinophils 0.5 thou/uL (0.0-0.7); #Lymphocytes 1.8 thou/uL (1.20-3.40); #Monocytes 0.5 thou/uL (0.11-0.59); #Neutrophils 4.5 thou/uL (1.40-6.50); %Basophils 1.7 % (0.0-1.0); %Eosinophils 6.3 % (0.0-10.0); %Lymphocytes 24.3 % (21.0-51.0); %Monocytes 6.5 % (0.0-10.0); %Neutrophils 61.2 % (42.0-75.0); Hematocrit 31.5 % (36.0-47.0); Hemoglobin 9.5 g/dL (12.0-16.0); Mean Corpuscular HGB CONC 30.2 g/dL (32.0-36.0); Mean Corpuscular Hemoglobin 24.8 pg (27.0-31.0); Mean Corpuscular Volume 82.1 fl (78.0-98.0); Mean Platelet Volume 5.7 fL (7.4-10.4); Platelet Count 765 10x3/uL (130-400); RBC Distribution Width 17.4 % (11.5-14.5); Red Blood Cell (RBC) Count 3.84 mill/uL (4.20-5.40); White Blood Cell (WBC) Count 7.4 10x3/uL (4.8-10.8)
[2024-02-10 06:02] LABS: Anion Gap 17 mmol/L (10-20); BUN (Urea Nitrogen) 17 mg/dL (9.8-20.1); Calc. Creatinine Clearance 50 mL/min (70-130); Calcium 9.7 mg/dL (7.8-10.44); Carbon Dioxide 28 mmol/L (23-31); Chloride 95 mmol/L (98-107); Estimated GFR 44; Glucose 100 mg/dL (83-110); Potassium 3.4 mmol/L (3.5-5.1); Sodium 137 mmol/L (136-145)
[2024-02-10] MEDS: Potassium Chloride 20 MEQ TAB PO SCH (16:47)
[2024-02-10] MEDS: Gabapentin 100 MG CAP PO SCH (20:54)
[2024-02-11 06:21] LABS: Anion Gap 16 mmol/L (10-20); BUN (Urea Nitrogen) 20 mg/dL (9.8-20.1); Calc. Creatinine Clearance 46 mL/min (70-130); Calcium 9.3 mg/dL (7.8-10.44); Carbon Dioxide 28 mmol/L (23-31); Chloride 98 mmol/L (98-107); Estimated GFR 40; Glucose 92 mg/dL (83-110); Potassium 4.3 mmol/L (3.5-5.1); Sodium 138 mmol/L (136-145)
[2024-02-11] MEDS: Bumetanide 1 MG TAB PO SCH (08:19)
[2024-02-12 05:57] LABS: #Basophils 0.1 thou/uL (0.0-0.2); #Eosinophils 0.3 thou/uL (0.0-0.7); #Lymphocytes 1.8 thou/uL (1.20-3.40); #Monocytes 0.8 thou/uL (0.11-0.59); #Neutrophils 3.7 thou/uL (1.40-6.50); %Basophils 1.3 % (0.0-1.0); %Eosinophils 5.1 % (0.0-10.0); %Lymphocytes 26.3 % (21.0-51.0); %Monocytes 11.3 % (0.0-10.0); Hematocrit 31.6 % (36.0-47.0); Hemoglobin 9.6 g/dL (12.0-16.0); Mean Corpuscular HGB CONC 30.2 g/dL (32.0-36.0); Mean Corpuscular Hemoglobin 25.1 pg (27.0-31.0); Mean Corpuscular Volume 83.2 fl (78.0-98.0); Mean Platelet Volume 5.7 fL (7.4-10.4); Platelet Count 576 10x3/uL (130-400); White Blood Cell (WBC) Count 6.7 10x3/uL (4.8-10.8)
[2024-02-12 06:11] LABS: Anion Gap 17 mmol/L (10-20); BUN (Urea Nitrogen) 19 mg/dL (9.8-20.1); Calc. Creatinine Clearance 49 mL/min (70-130); Carbon Dioxide 25 mmol/L (23-31); Chloride 99 mmol/L (98-107); Estimated GFR 42; Glucose 97 mg/dL (83-110); Potassium 3.9 mmol/L (3.5-5.1); Sodium 137 mmol/L (136-145)
[2024-02-14] MEDS: Polyethylene Glycol 3350 17 GM Packet PO PRN (08:35)
[2024-02-17 05:40] VITALS: BMI 30.4
[2024-02-17 06:28] LABS: #Basophils 0.1 thou/uL (0.0-0.2); #Eosinophils 0.3 thou/uL (0.0-0.7); #Lymphocytes 1.2 thou/uL (1.20-3.40); #Monocytes 0.5 thou/uL (0.11-0.59); #Neutrophils 3.8 thou/uL (1.40-6.50); %Basophils 1.4 % (0.0-1.0); %Eosinophils 4.3 % (0.0-10.0); %Lymphocytes 20.7 % (21.0-51.0); %Neutrophils 65.6 % (42.0-75.0); Hematocrit 30.5 % (36.0-47.0); Hemoglobin 9.2 g/dL (12.0-16.0); Mean Corpuscular Hemoglobin 25.5 pg (27.0-31.0); Mean Platelet Volume 6.4 fL (7.4-10.4); Platelet Count 595 10x3/uL (130-400); RBC Distribution Width 18.3 % (11.5-14.5); Red Blood Cell (RBC) Count 3.58 mill/uL (4.20-5.40); White Blood Cell (WBC) Count 5.8 10x3/uL (4.8-10.8)
[2024-02-17 06:32] LABS: Anion Gap 15 mmol/L (10-20); BUN (Urea Nitrogen) 19 mg/dL (9.8-20.1); Calc. Creatinine Clearance 53 mL/min (70-130); Calcium 9.3 mg/dL (7.8-10.44); Carbon Dioxide 30 mmol/L (23-31); Chloride 97 mmol/L (98-107); Estimated GFR 48; Glucose 94 mg/dL (83-110); Potassium 3.5 mmol/L (3.5-5.1); Sodium 138 mmol/L (136-145)
[2024-02-18 07:36] VITALS: BMI 30.4
[2024-02-19 07:32] VITALS: BP 116/63; TEMP 97.2
== END 2024-02-19 10:40 | DRG 947 ==
LOC: NAV ACUTE 01-29 15:54
PROVIDERS: ADMIT Student in an Organized Health Care Education/Training Program; ATTEND Student in an Organized Health Care Education/Training Program
DX: R53.81 Other malaise (principal); I50.23 Acute on chronic systolic (congestive) heart failure; J96.01 Acute respiratory failure with hypoxia; I13.0 Hypertensive heart and chronic kidney disease with heart failure and stage 1 through stage 4 chronic kidney disease, or unspecified chronic kidney disease; E87.1 Hypo-osmolality and hyponatremia; N18.31 Chronic kidney disease, stage 3a; D75.839 Thrombocytosis, unspecified; D50.9 Iron deficiency anemia, unspecified; M06.9 Rheumatoid arthritis, unspecified; E03.9 Hypothyroidism, unspecified; G47.33 Obstructive sleep apnea (adult) (pediatric); F03.90 Unspecified dementia, unspecified severity, without behavioral disturbance, psychotic disturbance, mood disturbance, and anxiety; G62.9 Polyneuropathy, unspecified; E78.5 Hyperlipidemia, unspecified; M81.0 Age-related osteoporosis without current pathological fracture; E87.6 Hypokalemia; Z86.73 Personal history of transient ischemic attack (TIA), and cerebral infarction without residual deficits; Z79.899 Other long term (current) drug therapy; Z79.82 Long term (current) use of aspirin; Z90.49 Acquired absence of other specified parts of digestive tract; Z98.49 Cataract extraction status, unspecified eye; Z90.710 Acquired absence of both cervix and uterus
CPT/HCPCS: 36415; 71045; 80048; 80053; 82570; 82728; 83540; 83550; 83735; 84540; 85025; J8610; Q0162